=== PATIENT | female | born 1945 | race Caucasian/White ===

== ENCOUNTER 2020-06-11 13:51 | Outpatient (CLI) | payer MEDICARE, SELFPAY ==
[2020-06-11 14:30] VITALS: PULSE 95; O2SAT 87
[2020-06-11 14:33] VITALS: O2SAT 93
[2020-06-11 14:35] VITALS: O2SAT 87
[2020-06-11 14:38] VITALS: O2SAT 87
[2020-06-11 14:40] VITALS: PULSE 110; O2SAT 90
[2020-06-11 14:50] VITALS: PULSE 87; O2SAT 97
--- NOTE | 2020-06-11 15:17 | HOMEO2EVAL ---
Home Oxygen Evaluation RC: Home Oxygen (O2) Evaluation Start: 06/11/20 15:06 Freq: Status: Active Protocol: RPE Activity Type Activity Date Activity User E-Sign Co-Sign Detail Recorded Client Recorded Date Recorded By Document 06/11/20 14:30 KYLE [email or web address] 06/11/20 15:16 KYLE Document 06/11/20 14:33 KYLE [email or web address] 06/11/20 15:16 KYLE Document 06/11/20 14:35 KYLE [email or web address] 06/11/20 15:16 KYLE Document 06/11/20 14:38 KYLE [email or web address] 06/11/20 15:16 KYLE Document 06/11/20 14:40 KYLE [email or web address] 06/11/20 15:16 KYLE Document 06/11/20 14:50 KYLE [email or web address] 06/11/20 15:16 KYLE 06/11/20 06/11/20 06/11/20 14:30 14:33 14:35 Home O2 Evaluation Test Phase Resting Resting Exercise Oxygen Delivery Room Air Nasal Cannula Nasal Cannula Oxygen Flow Rate (L/min) 1 1 Pulse Oximetry (90-100 %) 87 L 93 87 L Pulse Rate (60-100 beats/min) 95 Activity Tolerance Ambulation Distance (feet) Home Oxygen Evaluation Comments Treatment Charges O2 Evaluation 06/11/20 06/11/20 06/11/20 14:38 14:40 14:50 Home O2 Evaluation Test Phase Exercise Exercise Resting Oxygen Delivery Nasal Cannula Nasal Cannula Nasal Cannula Oxygen Flow Rate (L/min) 2 3 1 Pulse Oximetry (90-100 %) 87 L 90 97 Pulse Rate (60-100 beats/min) 110 H 87 Activity Tolerance Good Ambulation Distance (feet) 250 250 Home Oxygen Evaluation Comments PT REQUIRES 1 L AT REST AND 3 L WITH ACTIVITY Treatment Charges
== END 2020-06-11 13:52 | disposition home or self-care (01) ==
PROVIDERS: PCP Internal Medicine; Visit Provider Internal Medicine
DX: J44.9 Chronic obstructive pulmonary disease, unspecified (principal)
CPT/HCPCS: 94618

== ENCOUNTER 2021-09-06 17:22 | Emergency (ER) | payer MEDICARE, SELFPAY ==
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
--- NOTE | ~2021-09-06 | XR_ITS ---
XR lumbar spine 2-3V 09/06/2021 21:03 Indication: Low back pain Procedure: 3 views lumbar spine Comparison: 04/29/2004 Findings: There is disc narrowing at L3-4, L4-5 and L5-S1. There are facet degenerative changes at th scott levels. There is mild superior endplate compression deformity of L2, likely chronic. No evidence for acute fracture or traumatic malalignment. There is bilateral symmetric degenerative changes of th e sacroiliac joints. Sacral foramen are symmetric. There is atherosclerosis of the aorta. Impression: 1: Progression of moderate-severe lumbar spondylosis. 2: Mild superior endplate compression deformity of L2, likely chronic. Reviewed, dictated and finalized at location A. ALLER Impression: 1: Progression of moderate-severe lumbar spondylosis. 2: Mild superior endplate compression deformity of L2, likely chronic.
[2021-09-06 17:27] VITALS: BP 154/103; PULSE 95; RESP 20; TEMP 36.4; O2SAT 97
[2021-09-06] MEDS: TETANUS,DIPHTHERIA,AC PERTUSSIS ADULT (0.5 ML) BOOSTRIX IM (20:29)
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
[2021-09-06 20:32] LABS: Basophils Absolute Auto 0.1 K/mm3 (0.0-0.1); Basophils Percent Auto 0.4 % (0.2-1.2); Eosinophils Percent Auto 0.1 % (0-4.4); Hematocrit 44.5 % (37.0-47.0); Hemoglobin 13.7 g/dL (12.0-15.0); Immature Granulocyte Absolute 0.14 K/mm3 (0.00-0.031); Immature Granulocyte Percent A 0.7 % (0-0.5); Lymphocytes Absolute Auto 0.71 K/mm3 (0.9-3.2); Lymphocytes Percent Auto 3.7 % (18.3-44.2); Mean Corpuscular HGB Conc 30.8 g/dl (32-36); Mean Corpuscular Hemoglobin 27.9 pg (26-34); Mean Corpuscular Volume 90.6 fl (80-100); Mean Platelet Volume 10.6 fl (7.4-10.4); Monocytes Absolute Auto 0.8 K/mm3 (0.1-0.6); Monocytes Percent Auto 4.3 % (2.6-8.5); Neutrophils Absolute Auto 17.5 K/mm3 (1.3-6.7); Neutrophils Percent Auto 90.8 % (45.5-73.1); Platelet Count Result 262 k/mm3 (150-375); Red Blood Count 4.91 M/mm3 (4.2-5.4); Red Cell Distribution Width 13.7 % (11.5-14.5); White Blood Count 19.2 K/mm3 (4.5-10.0)
[2021-09-06 20:46] LABS: Alanine Aminotransferase 14 U/L (4-35); Albumin Level 4.5 g/dL (3.5-5.1); Alkaline Phosphatase 104 U/L (38-126); Anion Gap 3 mmol/L (8-16); Aspartate Amino Transferase 29 U/L (14-36); Bilirubin,Total 0.8 mg/dL (0.2-1.3); Blood Urea Nitrogen 10 mg/dL (7-17); Calcium 9.7 mg/dL (8.4-10.2); Carbon Dioxide 33 mmol/L (22-30); Chloride 100 mmol/L (98-107); Estimated CRCL calculation 60 ml/min; Estimated Glomerular Filt Rate > 60; Glucose 128 mg/dL (65-110); Sodium 136 mmol/L (137-145)
[2021-09-06 21:35] LABS: Add Urine Microscopic? YES; Appearance Urine Clear (Clear); Bilirubin Urine Negative (Negative); Blood Urine 1+ (Negative); Color Urine Straw (Yellow); Glucose Urine UA Negative (Negative); Ketones Urine Negative (Negative); Leukocyte Esterase Ur 1+ LEU/UL (Negative); Mucus Urine Rare /lpf; Nitrate Urine Negative (Negative); Protein Urine Negative (Negative); Renal Epithelial Cells Urine Rare /hpf (None Seen); Specific Grav Ur 1.005 (1.001-1.035); Squamous Epithelial Cell Urine Occasional /hpf (Few); Urobilinogen Urine Negative mg/dL (<2.0); WBC Urine 16-20 /hpf
[2021-09-06] MEDS: ACETAMINOPHEN 500 MG TABLET 1000 MG (21:48)
[2021-09-06 22:05] VITALS: BP 151/88; PULSE 59; RESP 16; O2SAT 96
== END 2021-09-06 22:05 | disposition home or self-care (01) ==
PROVIDERS: Emergency Provider Emergency Medicine; PCP Internal Medicine
DX: S61.412A Laceration without foreign body of left hand, initial encounter (principal); S61.411A Laceration without foreign body of right hand, initial encounter; S00.12XA Contusion of left eyelid and periocular area, initial encounter; M54.9 Dorsalgia, unspecified; Z23 Encounter for immunization; V89.0XXA Person injured in unspecified motor-vehicle accident, nontraffic, initial encounter
CPT/HCPCS: 36415; 51701; 70450; 70486; 72100; 72125; 73130; 80053; 81001; 85025; 87086; 90471; 90715; 99284; A9270

== ENCOUNTER 2021-09-19 14:21 | Emergency (ER) | payer MEDICARE, SELFPAY ==
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
[2021-09-19 14:32] VITALS: BP 123/105; PULSE 53; RESP 20; TEMP 36.6; O2SAT 100
[2021-09-19 16:27] VITALS: BP 138/92; PULSE 105; RESP 22; TEMP 36.7; O2SAT 98
--- NOTE | 2021-09-19 16:28 | PC.NURSE ---
Rn switching out oxygen tube for new one at this time.
[2021-09-19 17:04] VITALS: BP 149/95; PULSE 93; RESP 18; O2SAT 95
[2021-09-19 17:28] LABS: Basophils Absolute Auto 0.1 K/mm3 (0.0-0.1); Basophils Percent Auto 0.6 % (0.2-1.2); Eosinophils Absolute Auto 0.2 K/mm3 (0-0.3); Eosinophils Percent Auto 1.1 % (0-4.4); Hematocrit 35.6 % (37.0-47.0); Hemoglobin 11.1 g/dL (12.0-15.0); Immature Granulocyte Absolute 0.28 K/mm3 (0.00-0.031); Lymphocytes Absolute Auto 1.32 K/mm3 (0.9-3.2); Lymphocytes Percent Auto 9.3 % (18.3-44.2); Mean Corpuscular HGB Conc 31.2 g/dl (32-36); Mean Corpuscular Hemoglobin 27.8 pg (26-34); Mean Corpuscular Volume 89.2 fl (80-100); Mean Platelet Volume 9.4 fl (7.4-10.4); Monocytes Percent Auto 7.1 % (2.6-8.5); Neutrophils Absolute Auto 11.3 K/mm3 (1.3-6.7); Neutrophils Percent Auto 79.9 % (45.5-73.1); Platelet Count Result 436 k/mm3 (150-375); Red Blood Count 3.99 M/mm3 (4.2-5.4); Red Cell Distribution Width 14.4 % (11.5-14.5); White Blood Count 14.2 K/mm3 (4.5-10.0)
[2021-09-19 17:38] LABS: Prothrombin Time 13.3 Seconds (11.1-14.7)
[2021-09-19 17:40] LABS: Partial Thromboplastin Time 38.8 SECONDS (22.3-36.8)
[2021-09-19 17:45] LABS: Lactic Acid Reflex 0.7 mmol/L (0.7-2.1)
[2021-09-19 17:46] LABS: Alanine Aminotransferase 9 U/L (4-35); Albumin Level 3.9 g/dL (3.5-5.1); Alkaline Phosphatase 111 U/L (38-126); Anion Gap 6 mmol/L (8-16); Aspartate Amino Transferase 22 U/L (14-36); Bilirubin,Total 1.3 mg/dL (0.2-1.3); Blood Urea Nitrogen 11 mg/dL (7-17); Calcium 9.4 mg/dL (8.4-10.2); Carbon Dioxide 34 mmol/L (22-30); Chloride 93 mmol/L (98-107); Estimated CRCL calculation 51 ml/min; Estimated Glomerular Filt Rate 48; Glucose 119 mg/dL (65-110); Potassium 4.3 mmol/L (3.4-5.0); Sodium 133 mmol/L (137-145)
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
[2021-09-19] MEDS: MORPHINE SULFATE (*CRX) 4 MG/ML INJ 2 MG IV PUSH (19:04)
[2021-09-19 19:07] LABS: Add Urine Microscopic? YES; Appearance Urine Cloudy (Clear); Bacteria Urine 2+ /hpf; Bilirubin Urine Negative (Negative); Blood Urine 1+ (Negative); Color Urine Yellow (Yellow); Glucose Urine UA Negative (Negative); Ketones Urine Negative (Negative); Leukocyte Esterase Ur 3+ LEU/UL (Negative); Mucus Urine Rare /lpf; Nitrate Urine Negative (Negative); Protein Urine Negative (Negative); Squamous Epithelial Cell Urine Few /hpf (Few); Urobilinogen Urine Negative mg/dL (<2.0); WBC Urine >75 /hpf
[2021-09-19 19:10] LABS: Specific Grav Ur 1.004 (1.001-1.035)
[2021-09-19 20:04] VITALS: BP 120/87; PULSE 79; RESP 20; O2SAT 99
--- NOTE | 2021-09-19 20:06 | PC.NURSE ---
report called to cornelio curtis at [facility]
== END 2021-09-19 20:47 | disposition short-term general hospital (02) ==
PROVIDERS: Emergency Provider Emergency Medicine; PCP Internal Medicine
DX: S32.021A Stable burst fracture of second lumbar vertebra, initial encounter for closed fracture (principal); D17.71 Benign lipomatous neoplasm of kidney; R58 Hemorrhage, not elsewhere classified; N39.0 Urinary tract infection, site not specified; D64.9 Anemia, unspecified; J44.9 Chronic obstructive pulmonary disease, unspecified; F17.200 Nicotine dependence, unspecified, uncomplicated; V89.2XXA Person injured in unspecified motor-vehicle accident, traffic, initial encounter
CPT/HCPCS: 36415; 74177; 80053; 81001; 83605; 85025; 85610; 85730; 87086; 87088; 96365; 96375; 99285; J1956; J2270; Q9967

== ENCOUNTER 2021-11-09 14:30 | Observation (INO) | payer MEDICARE, SELFPAY ==
[2021-11-09] VITALS (24 sets, daily range): BP systolic 137–165; BP diastolic 84–101; PULSE 84–114; RESP 11–23; TEMP 36.2–36.4; O2SAT 91–100; BMI 34.4
--- NOTE | ~2021-11-09 | CT_ITS ---
EXAMINATION: CT abdomen pelvis wo con DATE: 11/09/2021 15:38 INDICATION: Low back and pelvic pain post fall TECHNIQUE: Computed tomography (CT) of the abdomen and pelvis was performed without intravenous contr ast. Automated exposure control and iterative reconstruction technique were employed. The dose-length product was 1258.15 mGy-cm. COMPARISON: None FINDINGS: Mild discoid atelectasis and mild bronchial wall thickening at the bilateral lung bases. No pleural e ffusion. Heart size is normal. Small pericardial effusion. Liver, gallbladder, spleen, pancreas and l eft kidney are normal. 2.5 similar macroscopic fat attenuation adrenal adenomas on both the left and right. 3.5 cm gas and fluid containing duodenal diverticulum posterior to the head of the pancreas. A gain seen is a predominantly macroscopic fat density exophytic mass arising from the anterior midpole of the right kidney consistent with angiomyolipoma. The mass measures 9.0 x 7.1 x 8.5 cm. The previo usly seen surrounding perinephric hemorrhage has resolved. There is linear pattern of punctate high a ttenuation along the capsule at the lower pole of the left kidney which could represent dystrophic ca lcification or potentially a suture line at this been prior surgery. There is moderate scattered colo luiz diverticulosis without adjacent inflammatory change to suggest diverticulitis. No bowel obstructi on. Normal appendix. Diffuse wall thickening of the bladder likely related to decompressed state. Man paco and bilateral adnexa are unremarkable. No free intraperitoneal gas or fluid. No pathologically en larged abdominal or pelvic lymphadenopathy. Fusiform infrarenal abdominal aortic aneurysm measuring u p to 3.8 cm in maximal diameter. Subacute appearing L2 burst fracture with progression of now 40% adán tral vertebral body height loss and 5 mm retropulsion of a fragment of the posterior superior rim of the vertebral body which results in now moderate central canal stenosis at this level. Moderate lower thoracic and severe mid to lower lumbar spondylosis. IMPRESSION: 1. Interval progression of now 40% vertebral body height loss at a subacute L2 burst fracture, also w ith 5 mm retropulsion resulting in moderate central canal stenosis. 2. 9 cm right renal angiomyolipoma with interval resolution of the prior perinephric hemorrhage. 3. Mildly aneurysmal abdominal aorta measuring up to 3.8 cm in maximal diameter. 4. Small pericardial effusion. 5. Diverticulosis. Reviewed, dictated and finalized at location A. ING PROGRAM MANAGER IMPRESSION: 1. Interval progression of now 40% vertebral body height loss at a subacute L2 burst fracture, also with 5 mm retropulsion resulting in moderate central canal stenosis. 2. 9 cm right renal angiomyolipoma with interval resolution of the prior perine phric hemorrhage. 3. Mildly aneurysmal abdominal aorta measuring up to 3.8 cm in maximal diameter . 4. Small pericardial effusion. 5. Diverticulosis.
--- NOTE | ~2021-11-09 | CT_ITS ---
EXAMINATION: CT brain wo con INDICATION: Head injury COMPARISON: 09/06/2021 TECHNIQUE: Standard unenhanced head CT. The dose-length product (DLP) was 605.33 mGy-cm. The mA was a djusted according to patient size. Iterative reconstruction technique was employed. FINDINGS: There is no acute intraparenchymal hemorrhage. No evidence of mass lesion. No evidence of a cute infarction. There is moderate periventricular and subcortical hypodensity probably related to sm all vessel ischemic disease. There is moderate prominence of the sulci and ventricles related to cere bral atrophy. Intracranial calcified cerebral atherosclerosis is noted. There are no extra-axial walker ections. There is no mass effect or midline shift. The orbits and soft tissues are unremarkable. The visualized sinuses and mastoid air cells are well aerated. IMPRESSION: 1. No acute intracranial abnormality. 2. Age related findings. Reviewed, dictated and finalized at location F. AVER MACHINE
--- NOTE | ~2021-11-09 | XR_ITS ---
EXAMINATION: XR chest 1V portable EXAM DATE: 11/09/2021 14:59 INDICATION: Generalized weakness . TECHNIQUE: Portable AP frontal chest x-ray was obtained. Comparison is made to prior examination from 07/15/2017. FINDINGS: Lungs are hyperinflated. There is basilar linear atelectasis. Cardiomegaly. No pneumothorax or pleural effusion. There are mild bony degenerative changes. IMPRESSION: 1. Basilar linear atelectasis. 2. Cardiomegaly. 3. Hyperinflation. Reviewed, dictated and finalized at location A. STMENT ASSOCIATE
--- NOTE | 2021-11-09 14:34 | ECG_ITS ---
Measurements Intervals [place] Rate: 102 P: IA: 0 QRS: 28 QRSD: 141 T: 35 QT: 363 QTc: 473 Interpretive Statements SINUS RHYTHM ATRIAL PREMATURE COMPLEXES RIGHT BUNDLE BRANCH BLOCK MINIMAL Q WAVES- INFERIOR LEADS BASELINE ARTIFACT- I, II, III, AVR, AVL, AVF, V2-V3 ABNORMAL ECG Electronically Signed On 11-09-2021 17:05:58 HEAT TREAT PULLER by Dustin Spicer D.O.
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
[2021-11-09 15:42] LABS: Basophils Percent Auto 0.4 % (0.2-1.2); Eosinophils Absolute Auto 0.1 K/mm3 (0-0.3); Hematocrit 35.3 % (37.0-47.0); Hemoglobin 10.9 g/dL (12.0-15.0); Immature Granulocyte Absolute 0.05 K/mm3 (0.00-0.031); Immature Granulocyte Percent A 0.5 % (0-0.5); Lymphocytes Percent Auto 10.2 % (18.3-44.2); Mean Corpuscular HGB Conc 30.9 g/dl (32-36); Mean Corpuscular Hemoglobin 27.8 pg (26-34); Mean Corpuscular Volume 90.1 fl (80-100); Monocytes Absolute Auto 0.7 K/mm3 (0.1-0.6); Monocytes Percent Auto 6.9 % (2.6-8.5); Platelet Count Result 325 k/mm3 (150-375); Red Blood Count 3.92 M/mm3 (4.2-5.4); Red Cell Distribution Width 14.7 % (11.5-14.5); White Blood Count 9.8 K/mm3 (4.5-10.0)
[2021-11-09 15:42] LABS: Add Urine Microscopic? YES; Appearance Urine Clear (Clear); Bilirubin Urine Negative (Negative); Blood Urine Negative (Negative); Color Urine Yellow (Yellow); Glucose Urine UA Negative (Negative); Ketones Urine Negative (Negative); Leukocyte Esterase Ur Trace LEU/UL (Negative); Nitrate Urine Negative (Negative); Protein Urine Negative (Negative); RBC Urine 0-2 /hpf (0-2); Specific Grav Ur 1.011 (1.001-1.035); Squamous Epithelial Cell Urine Rare /hpf (Few); Urobilinogen Urine Negative mg/dL (<2.0)
[2021-11-09 15:55] LABS: Alanine Aminotransferase 7 U/L (4-35); Albumin Level 3.6 g/dL (3.5-5.1); Alkaline Phosphatase 108 U/L (38-126); Anion Gap 4 mmol/L (8-16); Aspartate Amino Transferase 21 U/L (14-36); Bilirubin,Total 0.5 mg/dL (0.2-1.3); Blood Urea Nitrogen 13 mg/dL (7-17); Calcium 9.4 mg/dL (8.4-10.2); Carbon Dioxide 33 mmol/L (22-30); Chloride 98 mmol/L (98-107); Estimated Glomerular Filt Rate 48; Glucose 112 mg/dL (65-110); Sodium 135 mmol/L (137-145)
[2021-11-09 15:57] LABS: NT Pro B Type Natriuretic Pept 1130 pg/mL (5-100)
[2021-11-09 16:05] LABS: Troponin I 0.165 ng/mL (0.000-0.034)
[2021-11-09] MEDS: FUROSEMIDE INJ 40 MG/4 ML VIAL IV PUSH (16:26)
[2021-11-09] MEDS: ASPIRIN 81 MG CHEWABLE TABLET 324 MG PO (16:28)
[2021-11-09] MEDS: LORazepam (*CRX) 1 MG TABLET PO (18:03)
[2021-11-09] MEDS: traMADol HCL (*CRX) 50 MG TABLET PO (18:03)
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
[2021-11-09 20:52] LABS: SARS-CoV-2 RNA PCR Negative
--- NOTE | 2021-11-09 21:39 | PC.NURSE ---
This patient, Luba Sotelo, was admitted to IMU Room 201-01. Patient/family oriented to hospital policies and general routines including ID bracelet, bed and alarms, visiting hours, pain management, procedures, bathroom and other care routines, personal items, smoking policy, room service/diet, and visiting hours. Information on how to activate the Rapid Response Team has been discussed. Patient/Family are encouraged to report perceived risks to care and to ask questions if they do not understand what they are told or what they should do.
[2021-11-09 23:20] LABS: Troponin I 0.152 ng/mL (0.000-0.034)
[2021-11-10] VITALS (17 sets, daily range): BP systolic 134–162; BP diastolic 80–99; PULSE 71–118; RESP 16–20; TEMP 36.2–36.9; O2SAT 91–99
--- NOTE | 2021-11-10 | ECHO_ITS ---
Patient Info Name: Luba Sotelo Age: 76 years : 1945 Gender: Female Ht: 66 in Wt: 213 lbs BSA: 2.16 m2 HR: 104 bpm BP: 153 / 91 mmHg Technical Quality: Fair Exam Date: 11/10/2021 11:23 AM Exam Location: [facility] Pulmonary Patient Status: Inpatient Admit Date: 11/09/2021 Staff Ordering Physician: Kash Paiz MD Supervisor Network Control Operators: Vivi Freedman RDCS Attending Provider: Roxanne Eid MD Exam Type: CA echo dop color flow w con Study Info Indications - chf Complete two-dimensional, color flow and Doppler transthoracic echocardiogram is performed. Summary 1. Complete two-dimensional, color flow and Doppler transthoracic echocardiogram is performed. 2. Suboptimal image quality; echo contrast was used. Normal LV size, mild LVH, normal LV systolic function, ejection fraction 60 65%. Diastolic dysfunction is present. Mild mitral annular calcification, no significant MR. Aortic valve is not well visualized, no hemodynamically significant stenosis by Doppler. Trivial TR, RVSP 23 mmHg. Trivial pericardial effusion, epicardial fat pad. Sinus rhythm with ectopy. Left Ventricle Left ventricular chamber dimension is normal. Left ventricular systolic function is normal, estimated at 60-65%. There is mildly increased left ventricular wall thickness. The left ventricular diastolic function is abnormal. Right Ventricle Right ventricular chamber dimension is normal. Right ventricular systolic function is normal. Left Atria Left atrial chamber dimension is normal. Right Atria Right atrial chamber dimension is normal. Aortic Valve The aortic valve is not well visualized. There is no aortic valve stenosis. Pulmonic Valve The pulmonic valve is not well visualized. Mitral Valve There is no mitral valve regurgitation. The mitral valve annulus is mildly calcified. Pericardium/Pleural The pericardium appears epicardial fat pad. There is trivial pericardial effusion. Inferior Vena Cava Dilated inferior vena cava with >50% collapse upon inspiration consistent with elevated right atrial pressure, 10 mmHg. Aorta The aortic root size at the sinus of Valsalva is normal. Left Ventricular Outflow Tract Name Value Normal LVOT 2D LVOT Diameter 2.14 cm LVOT Doppler LVOT Peak Gradient 4 mmHg LVOT Mean Gradient 2 mmHg LVOT VTI 13.94 cm LVOT VTI/AV VTI Ratio 0.63 LVOT Stroke Volume 50.18 ml LVOT CO 5.80 l/min LVOT CI 2.68 L/min/m2 Pulmonic Valve Name Value Normal RVOT Doppler RVOT Peak Gradient 2 mmHg PV Doppler PV Peak Gradient 3 mmHg
[2021-11-10] MEDS: LEVOTHYROXINE SODIUM 112 MCG TABLET PO (06:27)
--- NOTE | 2021-11-10 08:20 | PC.NURSE ---
AT 0800 Patient stated to [facility] that she had wishes to kill herself. This nurse notified of patient behavior. At 0805, this RN went to assess patient. Patient states that she want's to jump out the window , she wishes that she would just . [place] scale risk completed at this time and patient scored low risk . Dr. Colón updated and notified of patient behavior at 0820. Will continue to monitor.
[2021-11-10] MEDS: UMECLIDINIUM BROMIDE 62.5 MCG ELLIPTA 1 PUFF INHALATION (08:23)
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
[2021-11-10] MEDS: FUROSEMIDE 20 MG TABLET PO (08:37)
[2021-11-10] MEDS: LOSARTAN POTASSIUM 50 MG TABLET PO (08:37)
[2021-11-10] MEDS: ALPRAZolam (*CRX) 0.5 MG TABLET 1 MG PO ×3 (08:38→17:59)
[2021-11-10] MEDS: POTASSIUM CHLORIDE 10 MEQ TABLET.ER PO (08:38)
[2021-11-10] MEDS: IBUPROFEN 400 MG TABLET 800 MG PO (08:41)
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
[2021-11-10] MEDS: PERFLUTREN LIPID MICROSPHERES 1.5 ML VIAL DILUTED TO 10 ML TOTAL VOLUME IV PUSH (12:10)
--- NOTE | 2021-11-10 12:10 | IVDEFINITY ---
Prior to administration of IV Definity the patient was educated on the risks and benefits of the imaging enhancing agent including potential adverse side effects. The patient verbalized understanding. Allergies were verified. No exclusion criteria were identified and at least one of the following inclusion criteria were met: 1) physician request, 2) patient technically difficult to image (per the [place] [employer]ocardi[employer] guidelines of two or more segments not discernable within the apical view), or 3) questionable left ventricular function. ?
[2021-11-10] MEDS: BISACODYL 10 MG SUPPOSITORY RECTAL (14:13)
[2021-11-10] MEDS: EUCERIN CREAM 120 GM JAR 1 APPLIC TOPICAL (17:59)
[2021-11-10] MEDS: polyethylene glycoL 3350 17 GM POWD.PACK PO (17:59)
[2021-11-11] VITALS (14 sets, daily range): BP systolic 136–155; BP diastolic 72–109; PULSE 71–105; RESP 15–20; TEMP 35.9–36.4; O2SAT 94–100
[2021-11-11 05:13] LABS: Basophils Absolute Auto 0.1 K/mm3 (0.0-0.1); Basophils Percent Auto 0.6 % (0.2-1.2); Eosinophils Absolute Auto 0.4 K/mm3 (0-0.3); Eosinophils Percent Auto 4.8 % (0-4.4); Hematocrit 35.8 % (37.0-47.0); Hemoglobin 10.9 g/dL (12.0-15.0); Immature Granulocyte Absolute 0.06 K/mm3 (0.00-0.031); Immature Granulocyte Percent A 0.8 % (0-0.5); Lymphocytes Absolute Auto 1.26 K/mm3 (0.9-3.2); Lymphocytes Percent Auto 16.2 % (18.3-44.2); Mean Corpuscular HGB Conc 30.4 g/dl (32-36); Mean Corpuscular Hemoglobin 28.2 pg (26-34); Mean Corpuscular Volume 92.5 fl (80-100); Mean Platelet Volume 10.1 fl (7.4-10.4); Monocytes Absolute Auto 0.7 K/mm3 (0.1-0.6); Monocytes Percent Auto 8.4 % (2.6-8.5); Neutrophils Absolute Auto 5.4 K/mm3 (1.3-6.7); Neutrophils Percent Auto 69.2 % (45.5-73.1); Platelet Count Result 288 k/mm3 (150-375); Red Blood Count 3.87 M/mm3 (4.2-5.4); White Blood Count 7.8 K/mm3 (4.5-10.0)
[2021-11-11] MEDS: LEVOTHYROXINE SODIUM 112 MCG TABLET PO (05:22)
[2021-11-11 05:31] LABS: Alanine Aminotransferase 6 U/L (4-35); Albumin Level 3.3 g/dL (3.5-5.1); Alkaline Phosphatase 100 U/L (38-126); Anion Gap 2 mmol/L (8-16); Aspartate Amino Transferase 19 U/L (14-36); Bilirubin,Total 0.5 mg/dL (0.2-1.3); Blood Urea Nitrogen 13 mg/dL (7-17); Calcium 8.7 mg/dL (8.4-10.2); Carbon Dioxide 36 mmol/L (22-30); Chloride 99 mmol/L (98-107); Creatine Kinase 39 U/L (30-135); Estimated CRCL calculation 50 ml/min; Estimated Glomerular Filt Rate 54; Glucose 93 mg/dL (65-110); Magnesium 2.2 mg/dL (1.6-2.3); Phosphorus 3.6 mg/dL (2.5-4.5); Potassium 3.4 mmol/L (3.4-5.0); Sodium 137 mmol/L (137-145)
[2021-11-11 06:24] LABS: Folic Acid 14.1 ng/mL (2.76->20); Vitamin B12 < 159.0 pg/mL (239-931)
[2021-11-11] MEDS: UMECLIDINIUM BROMIDE 62.5 MCG ELLIPTA 1 PUFF INHALATION (07:57)
[2021-11-11] MEDS: POTASSIUM CHLORIDE 10 MEQ TABLET.ER PO (09:02)
[2021-11-11] MEDS: LOSARTAN POTASSIUM 50 MG TABLET PO (09:02)
[2021-11-11] MEDS: CYANOCOBALAMIN INJ 1,000 MCG/ML VIAL 1000 MCG IM (09:03)
[2021-11-11] MEDS: polyethylene glycoL 3350 17 GM POWD.PACK PO (09:03)
[2021-11-11] MEDS: CYANOCOBALAMIN 1,000 MCG TABLET 1000 MCG PO (09:03)
[2021-11-11] MEDS: ALPRAZolam (*CRX) 0.5 MG TABLET 1 MG PO ×3 (09:03→16:11)
[2021-11-11] MEDS: FUROSEMIDE 20 MG TABLET PO (09:03)
[2021-11-11] MEDS: EUCERIN CREAM 120 GM JAR 1 APPLIC TOPICAL ×2 (09:03→16:11)
[2021-11-11] MEDS: IBUPROFEN 400 MG TABLET 800 MG PO (09:06)
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
--- NOTE | 2021-11-11 14:30 | PCCCNOTE ---
On 11/11/21, the student, [Zuri Pham ], provided care and completed [facility] documentation on this patient. I have reviewed the student's documentation and agree with the findings.
[2021-11-11] MEDS: POTASSIUM CHLORIDE 20 MEQ TABLET PO (16:05)
[2021-11-12] VITALS (9 sets, daily range): BP systolic 146–153; BP diastolic 58–87; PULSE 87–103; RESP 20–22; TEMP 35.9; O2SAT 92–100
[2021-11-12] MEDS: IBUPROFEN 400 MG TABLET 800 MG PO ×2 (00:09→09:38)
[2021-11-12] MEDS: LEVOTHYROXINE SODIUM 112 MCG TABLET PO (06:05)
[2021-11-12] MEDS: LOSARTAN POTASSIUM 50 MG TABLET PO (09:31)
[2021-11-12] MEDS: CYANOCOBALAMIN INJ 1,000 MCG/ML VIAL 1000 MCG IM (09:31)
[2021-11-12] MEDS: SPIRONOLACTONE 25 MG TABLET PO (09:31)
[2021-11-12] MEDS: ALPRAZolam (*CRX) 0.5 MG TABLET 1 MG PO ×2 (09:31→14:23)
[2021-11-12] MEDS: CYANOCOBALAMIN 1,000 MCG TABLET 1000 MCG PO (09:31)
[2021-11-12] MEDS: FUROSEMIDE 20 MG TABLET PO (09:31)
[2021-11-12] MEDS: POTASSIUM CHLORIDE 10 MEQ TABLET.ER PO (09:32)
[2021-11-12] MEDS: EUCERIN CREAM 120 GM JAR 1 APPLIC TOPICAL (09:32)
[2021-11-12] MEDS: polyethylene glycoL 3350 17 GM POWD.PACK PO (09:32)
[2021-11-12 09:39] LABS: Anion Gap 4 mmol/L (8-16); Blood Urea Nitrogen 13 mg/dL (7-17); Calcium 8.6 mg/dL (8.4-10.2); Carbon Dioxide 32 mmol/L (22-30); Chloride 101 mmol/L (98-107); Estimated CRCL calculation 54 ml/min; Estimated Glomerular Filt Rate > 60; Glucose 95 mg/dL (65-110); Potassium 3.8 mmol/L (3.4-5.0); Sodium 137 mmol/L (137-145)
[2021-11-12] MEDS: UMECLIDINIUM BROMIDE 62.5 MCG ELLIPTA 1 PUFF INHALATION (09:49)
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
--- NOTE | 2021-11-12 14:01 | PCCCNOTE ---
On 11/12/21, the student, Sue John, provided care and completed [facility] documentation on this patient. I have reviewed the student's documentation and agree with the findings.
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
== END 2021-11-12 17:10 | disposition home or self-care (01) ==
LOC: ANHED 17:42 → ANHIMU 23:56
PROVIDERS: Emergency Medicine; Internal Medicine Cardiovascular Disease; Admitting Provider Internal Medicine; Emergency Provider Nurse Practitioner Family; PCP Internal Medicine; Visit Provider Internal Medicine
DX: J96.10 Chronic respiratory failure, unspecified whether with hypoxia or hypercapnia (principal); I48.91 Unspecified atrial fibrillation; M62.81 Muscle weakness (generalized); J44.9 Chronic obstructive pulmonary disease, unspecified; S32.029A Unspecified fracture of second lumbar vertebra, initial encounter for closed fracture; R26.81 Unsteadiness on feet; R29.6 Repeated falls; I50.9 Heart failure, unspecified; R00.0 Tachycardia, unspecified; I11.0 Hypertensive heart disease with heart failure; M54.50 Low back pain, unspecified; G89.29 Other chronic pain; R77.8 Other specified abnormalities of plasma proteins; D17.71 Benign lipomatous neoplasm of kidney; E53.8 Deficiency of other specified B group vitamins; Z87.891 Personal history of nicotine dependence; Z20.822 Contact with and (suspected) exposure to COVID-19
CPT/HCPCS: 36415; 51701; 70450; 71045; 74176; 80048; 80053; 81001; 82550; 82607; 82746; 83735; 83880; 84100; 84443; 84484; 85025; 93005; 94640; 96372; 96374; 96375; 97110; 97161; 97165; 97530; 99285; A9270; C8929; C9803; G0378; J1940; J3420; Q9957; U0003; U0005

== ENCOUNTER 2021-12-30 20:05 | Inpatient (IN) | payer MEDICARE, SELFPAY ==
--- NOTE | ~2021-12-30 | MR_ITS ---
EXAMINATION: MR lumbar spine [facility] EXAM DATE: 01/05/2022 14:25 INDICATION: L2 burst fracture. TECHNIQUE: Multi-sequential, multiplanar MR images of the lumbar spine were obtained without contrast . Sagittal T1, T2, T2 fat saturation images. Axial T2 weighted images. Correlation is made to CT [facility] spine 12/31/2021. FINDINGS: Again there is mild to burst fractures with moderate loss of this vertebral body height ant eriorly and centrally, mild to moderate loss posteriorly. There is 5-6 mm retropulsion, causing moder ate central canal stenosis. Moderate disc disease L4-5 and L5-S1. The conus medullaris terminates at the T12-L1 level and has normal signal intensity and morphology. Paraspinal soft tissue is unremarka ble. Level by level evaluation: T12-L1: Disc does not extend beyond the endplate margin. Facet arthropathy: Mild. Neural foraminal stenosis: No stenosis. Central canal stenosis: No stenosis. L1-L2: There is a moderate diffuse disc bulge/retropulsion L2 superior endplate Facet arthropathy: Moderate . Ligamentum flavum enlargement. Neural foraminal stenosis: Mild to moderate bilateral. Central canal stenosis: Moderate. L2-L3: There is a mild to moderate diffuse disc bulge. Facet arthropathy: Moderate to severe . Ligamentum flavum enlargement. Neural foraminal stenosis: Mild to moderate bilateral. Central canal stenosis: Mild to moderate. L3-L4: There is a mild diffuse disc bulge. Facet arthropathy: Moderate. Neural foraminal stenosis: Mild to moderate bilateral. Central canal stenosis: Mild. L4-L5: There is a mild to moderate diffuse disc bulge. Facet arthropathy: Mild to moderate. Neural foraminal stenosis: Mild to moderate bilateral. Central canal stenosis: Mild. L5-S1: There is a mild to moderate diffuse disc bulge. Facet arthropathy: Mild. Neural foraminal stenosis: Mild to moderate left, mild right. Central canal stenosis: No stenosis. IMPRESSION: 1. Subacute L2 burst fracture with retropulsion causing moderate central canal stenosis, stable comp ared to 12/31 but mild progression compared to 11/09. 2. Spondylosis as above. Reviewed, dictated and finalized at location A. IMPRESSION: 1. Subacute L2 burst fracture with retropulsion causing moderate central canal stenosis, stable compared to 12/31 but mild progression compared to 11/09. 2. Spondylosis as above.
--- NOTE | ~2021-12-30 | CT_ITS ---
EXAMINATION: CT cervical spine w con DATE: 12/31/2021 21:29 INDICATION: Clonus. TECHNIQUE: Computed tomography (CT) of the cervical spine was performed with 100 mL Omnipaque 350 int ravenous contrast. Automated exposure control and iterative reconstruction technique were employed. T he dose-length product was 1856.00 mGy-cm. COMPARISON: None FINDINGS: There are bilateral mastoid effusions, right worse than left. There is plaque in the proxim al internal carotid arteries with 0% stenosis on the right and 46% stenosis on the left relative to n ormal distal artery lumen diameters. Bone alignment is normal. Vertebral body heights are normal. The re is mildly decreased disc height at C4-C5. The following disc levels are specifically discussed: C2-C3: There is mild left uncovertebral joint osteoarthritis. There is severe left facet joint osteoa rthritis. There is ankylosis of right facet joint with mild hypertrophy. There is mild right neural f oraminal stenosis. There is no central canal stenosis. C3-C4: There is mild bilateral uncovertebral joint osteoarthritis. There is severe bilateral facet melvin int osteoarthritis. There is mild bilateral neural foraminal stenosis. There is mild central canal st enosis. C4-C5: There is mild right uncovertebral joint osteoarthritis. There is ankylosis of left facet joint with moderate hypertrophy. There is severe right facet joint osteoarthritis. There is ankylosis of l eft facet joint with severe hypertrophy. There is moderate left neural foraminal stenosis. There is m ild central canal stenosis. C5-C6: There is mild bilateral uncovertebral joint osteoarthritis. There is severe bilateral facet melvin int osteoarthritis. There is mild bilateral neural foraminal stenosis. There is mild central canal st enosis. C6-C7: There is no uncovertebral joint osteoarthritis. There is mild right and severe left facet join t osteoarthritis. There is mild left neural foraminal stenosis. There is mild central canal stenosis. C7-T1: There is no uncovertebral joint osteoarthritis. There is mild right and severe left facet join t osteoarthritis. There is mild left neural foraminal stenosis. There is mild central canal stenosis. IMPRESSION: 1. Moderate cervical spondylosis. Reviewed, dictated and finalized at location A.
--- NOTE | ~2021-12-30 | CT_ITS ---
EXAMINATION: CT thoracic lumbar w con DATE: 12/31/2021 21:29 INDICATION: Clonus. TECHNIQUE: Computed tomography (CT) of the thoracic and lumbar spine was performed with 100 mL Omnipa que 350 intravenous contrast. Automated exposure control and iterative reconstruction technique were employed. The dose-length product was 1856.00 mGy-cm. COMPARISON: CT abdomen and pelvis 11/09/2021 FINDINGS: CT THORACIC SPINE: There is severe emphysema. A calcified left lung nodule is consistent with old gra nulomatous disease. There is mild atelectasis bilaterally. There is an eccentric aneurysm of distal a ortic arch in the area of ligamentum arteriosum measuring 4.1 cm. There is 6 degrees dextrocurvature of lower thoracic spine. There is mild chronic anterior wedging of T4-T9 vertebral bodies. There are Schmorl's nodes at multiple levels. There is multilevel mildly decreased disc height. There is severe ly decreased disc height at T4-T5 and T5-T6 and moderately decreased disc height from T6-T7 through T 8-T9. There is multilevel facet joint osteoarthritis, severe at multiple levels. On the right, there is moderate neural foraminal stenosis at T3-T4 and T7-T8. On the left, there is moderate neural cameron inal stenosis at T10-T11. There is multilevel mild neural foraminal stenosis bilaterally. At T5-T6, t here is a calcified right central protrusion with mild central canal stenosis. At T7-T8, there is a l eft central protrusion with mild central canal stenosis. At T11-T10, there is a right central extrusi on with mild central canal stenosis. CT LUMBAR SPINE: There are masses in the adrenal glands measuring up to 2.5 cm on the left that measu red low-attenuation on the prior noncontrast CT, consistent with adenomas. 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 Bone alignment is normal. There is a burst fracture of L2 with up to 4 /5 loss of height and retropulsion of bone 6 mm into central spinal canal. There is mildly decreased disc height at L3-L4 and severely decreased disc height at L4-L5 and L5-S1. There is interbody fusion at L5-S1. The following disc levels are specifically discussed: L1-L2: The disc is bulging. There is severe bilateral facet joint osteoarthritis. There is moderate r ight and mild left neural foraminal stenosis. There is severe central canal stenosis. L2-L3: The disc is bulging. There is severe bilateral facet joint osteoarthritis. There is mild bilat eral neural foraminal stenosis. There is mild central canal stenosis. L3-L4: The disc is bulging. There is severe bilateral facet joint osteoarthritis. There is mild right and moderate left neural foraminal stenosis. There is mild central canal stenosis. L4-L5: The disc is bulging. There is severe bilateral facet joint osteoarthritis. There is mild right and moderate left neural foraminal stenosis. There is mild central canal stenosis. L5-S1: The disc is bulging. There is severe bilateral facet joint osteoarthritis. There is mild right and moderate left neural foraminal stenosis. There is mild central canal stenosis. IMPRESSION: 1. L2 burst fracture with worsening from 11/09/2021. 2. Severe thoracic and lumbar spondylosis. 3. 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 4. 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 Reviewed, dictated and finalized at location A.
--- NOTE | ~2021-12-30 | XR_ITS ---
EXAMINATION: XR barium swallow modified EXAM DATE: 01/06/2022 09:03 INDICATION: Dysphagia. TECHNIQUE: Modified barium esophagram was performed by speech pathologist with radiologist Dr. Ej Zamora present to administered fluoroscopy. Speech pathologist administered barium in varying consis tencies as per speech pathologist documentation. This was recorded on tape. There was total fluorosc opic time of 1.4 minutes. The DAP for this procedure was 1.15 Gycm2. A total of 2 images sent to TX CS from the exam. FINDINGS: Oral stage: Adequate function. Pharyngeal phase: Reduced laryngeal elevation, mild vallecular residual. Laryngeal penetration: Thin liquids. Aspiration: May have been demonstrated on thin liquids. IMPRESSION: Oral feedings recommended with limitations as per speech pathologist. Please refer to s martín pathologist findings and specific feeding recommendations. Reviewed, dictated and finalized at location A. IMPRESSION: Oral feedings recommended with limitations as per speech pathologis t. Please refer to speech pathologist findings and specific feeding recommend ations.
--- NOTE | ~2021-12-30 | US_ITS ---
EXAMINATION: US renal BI EXAM DATE: 12/31/2021 10:21 INDICATION: Acute kidney insufficiency. TECHNIQUE: Multiple grayscale and Doppler images of the kidneys were obtained (by a technologist who performed the scan) and subsequently reviewed. Correlation is made to CT dated 11/09/2021. FINDINGS: Right kidney: There is normal contour and echogenicity. It measures 11.4 x 5.3 x 5.3 centimeters. 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 There is no hydronephrosis. Left kidney: There is normal contour and echogenicity. It measures 9.7 x 5.0 x 4.4 centimeters. The re are no focal renal lesions identified. There is no hydronephrosis. Timmons balloon anchor within collapsed bladder. IMPRESSION: Large right renal mass. Reviewed, dictated and finalized at location B. IMPRESSION: Large right renal mass.
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
[2021-12-30 20:19] VITALS: BP 186/93; PULSE 104; RESP 20; TEMP 36.4; O2SAT 94
--- NOTE | 2021-12-30 22:44 | ECG_ITS ---
Measurements Intervals [place] Rate: 98 P: 63 ND: 149 QRS: 42 QRSD: 147 T: 37 QT: 389 QTc: 497 Interpretive Statements SINUS RHYTHM WITH OCCASIONAL SUPRAVENTRICULAR PREMATURE COMPLEXES RIGHT BUNDLE BRANCH BLOCK ABNORMAL ECG Electronically Signed On 12-31-2021 16:48:25 CDT by Donell Snider M.D.
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
[2021-12-30 23:14] LABS: Basophils Absolute Auto 0.1 K/mm3 (0.0-0.1); Basophils Percent Auto 0.9 % (0.2-1.2); Eosinophils Absolute Auto 0.3 K/mm3 (0-0.3); Eosinophils Percent Auto 3.4 % (0-4.4); Hematocrit 38.7 % (37.0-47.0); Hemoglobin 11.7 g/dL (12.0-15.0); Immature Granulocyte Absolute 0.03 K/mm3 (0.00-0.031); Immature Granulocyte Percent A 0.4 % (0-0.5); Lymphocytes Absolute Auto 1.42 K/mm3 (0.9-3.2); Lymphocytes Percent Auto 17.8 % (18.3-44.2); Mean Corpuscular HGB Conc 30.2 g/dl (32-36); Mean Corpuscular Hemoglobin 27.9 pg (26-34); Mean Corpuscular Volume 92.1 fl (80-100); Mean Platelet Volume 11.9 fl (7.4-10.4); Monocytes Absolute Auto 0.7 K/mm3 (0.1-0.6); Monocytes Percent Auto 8.6 % (2.6-8.5); Neutrophils Absolute Auto 5.5 K/mm3 (1.3-6.7); Neutrophils Percent Auto 68.9 % (45.5-73.1); Platelet Count Result 249 k/mm3 (150-375); Red Cell Distribution Width 15.9 % (11.5-14.5)
[2021-12-30 23:17] VITALS: BP 191/118; PULSE 94; RESP 18; O2SAT 98
[2021-12-30 23:20] VITALS: RESP 18
[2021-12-31] VITALS (13 sets, daily range): BP systolic 148–163; BP diastolic 84–133; PULSE 97–116; RESP 16–18; TEMP 35.9–36.6; O2SAT 93–99
[2021-12-31 00:37] LABS: Alanine Aminotransferase 7 U/L (4-35); Albumin Level 3.8 g/dL (3.5-5.1); Alkaline Phosphatase 84 U/L (38-126); Anion Gap 6 mmol/L (8-16); Aspartate Amino Transferase 21 U/L (14-36); Bilirubin,Total 0.8 mg/dL (0.2-1.3); Blood Urea Nitrogen 14 mg/dL (7-17); Calcium 8.9 mg/dL (8.4-10.2); Carbon Dioxide 32 mmol/L (22-30); Chloride 98 mmol/L (98-107); Estimated CRCL calculation 43 ml/min; Estimated Glomerular Filt Rate 44; Glucose 108 mg/dL (65-110); NT Pro B Type Natriuretic Pept 4080 pg/mL (5-100); Potassium 3.7 mmol/L (3.4-5.0); Sodium 136 mmol/L (137-145); Troponin I 0.016 ng/mL (0.000-0.034)
[2021-12-31] MEDS: FUROSEMIDE INJ 40 MG/4 ML VIAL IV PUSH (01:14)
[2021-12-31] MEDS: traMADol HCL (*CRX) 50 MG TABLET PO ×4 (01:15→20:06)
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
--- NOTE | 2021-12-31 02:55 | ADMGEN ---
This patient, Luba Sotelo, was admitted to 3 [facility] Surg Room 314-01. Patient/family oriented to hospital policies and general routines including ID bracelet, bed and alarms, visiting hours, pain management, procedures, bathroom and other care routines, personal items, smoking policy, room service/diet, and visiting hours. Information on how to activate the Rapid Response Team has been discussed. Patient/Family are encouraged to report perceived risks to care and to ask questions if they do not understand what they are told or what they should do.
[2021-12-31] MEDS: SODIUM CHLORIDE 0.9% IV 1,000 ML 75 ML IV CONT ×2 (05:42→20:07)
[2021-12-31 05:51] LABS: Appearance Urine Clear (Clear); Bilirubin Urine Negative (Negative); Blood Urine Trace-lysed (Negative); Color Urine Yellow (Yellow); Glucose Urine UA Negative (Negative); Ketones Urine Negative (Negative); Leukocyte Esterase Ur 1+ LEU/UL (NEGATIVE); Nitrate Urine Negative (Negative); Protein Urine Negative (Negative); Urobilinogen Urine 0.2 mg/dL (<2.0); pH Urine 7.5 (5.0-9.0)
[2021-12-31 05:55] LABS: Bacteria Urine Trace /hpf; Mucus Urine Rare /lpf; Squamous Epithelial Cell Urine Occasional /hpf (Few)
[2021-12-31 05:56] LABS: Add Urine Microscopic? YES
[2021-12-31] MEDS: LEVOTHYROXINE SODIUM 112 MCG TABLET PO (06:41)
[2021-12-31] MEDS: UMECLIDINIUM BROMIDE 62.5 MCG ELLIPTA 1 PUFF INHALATION (08:32)
[2021-12-31] MEDS: SERTRALINE HCL 50 MG TABLET PO (09:19)
[2021-12-31] MEDS: amLODIPine BESYLATE 5 MG TABLET PO (09:19)
[2021-12-31] MEDS: ALPRAZolam (*CRX) 0.5 MG TABLET 1 MG PO ×3 (09:19→20:07)
[2021-12-31] MEDS: CYANOCOBALAMIN 1,000 MCG TABLET 1000 MCG PO (09:19)
[2021-12-31] MEDS: levoFLOXacin 500 MG/D5W 100 ML 500 MG/100 ML BAG 100 MG IVPB (09:24)
--- NOTE | 2021-12-31 10:44 | PC.NURSE ---
Pt's daughter, Sonia, called wanting an update. She also wanted to inform me that pt has an appointment with a neurosurgeon, Dr. Gonzalez, Tuesday01/04/22 at [place]. Sonia stated that she spoke with Dr. Gonzalez today who stated that he/she would accept pt as a transfer ( since we can't do anything to help her anyway ) since they are planning on doing lumbar surgery on pt. She also said that pt takes 1mg Lorazepam TID for a long time now.
--- NOTE | 2021-12-31 11:37 | PC.NURSE ---
I contacted Dr. Ayers to make her aware of the information that pt's daughter gave me regarding Dr. Gonzalez and transferring pt to [place].
--- NOTE | 2021-12-31 15:34 | PCOTNOTE ---
Pt. will require ortho consult for lumbar fx. prior to being evaluated for OT/PT
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
[2021-12-31] MEDS: methylPREDNISolone SOD SUCC 125 MG VIAL IV PUSH (20:06)
[2021-12-31] MEDS: HEPARIN SODIUM 5,000 UNITS/ML VIAL 5000 UNITS SUB-Q (20:06)
[2022-01-01] VITALS (19 sets, daily range): BP systolic 140–181; BP diastolic 84–104; PULSE 95–104; RESP 16–18; TEMP 36.1–36.7; O2SAT 92–98
[2022-01-01] MEDS: LEVOTHYROXINE SODIUM 112 MCG TABLET PO (06:05)
[2022-01-01] MEDS: methylPREDNISolone SOD SUCC 125 MG VIAL IV PUSH ×3 (06:05→20:30)
[2022-01-01] MEDS: UMECLIDINIUM BROMIDE 62.5 MCG ELLIPTA 1 PUFF INHALATION (08:31)
[2022-01-01] MEDS: amLODIPine BESYLATE 5 MG TABLET PO ×2 (09:30→15:22)
[2022-01-01] MEDS: CYANOCOBALAMIN 1,000 MCG TABLET 1000 MCG PO (09:30)
[2022-01-01] MEDS: SERTRALINE HCL 50 MG TABLET PO (09:31)
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
[2022-01-01] MEDS: ALPRAZolam (*CRX) 0.5 MG TABLET 1 MG PO ×2 (09:43→20:04)
[2022-01-01] MEDS: traMADol HCL (*CRX) 50 MG TABLET PO (09:43)
[2022-01-01] MEDS: levoFLOXacin 250 MG/D5W 50 ML 250 MG/50 ML BAG 50 MG IVPB (09:47)
[2022-01-01] MEDS: HEPARIN SODIUM 5,000 UNITS/ML VIAL 5000 UNITS SUB-Q ×2 (09:47→20:05)
--- NOTE | 2022-01-01 11:16 | PCOTNOTE ---
Hold per nursing, as pt. needs further specialist consultation to ensure pt. safety in therapy participation
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
[2022-01-01] MEDS: MORPHINE SULFATE (*CRX) 2 MG/ML INJ IV PUSH ×2 (15:57→20:05)
[2022-01-01 16:05] LABS: Basophils Percent Auto 0.2 % (0.2-1.2); Hematocrit 40.6 % (37.0-47.0); Hemoglobin 12.6 g/dL (12.0-15.0); Immature Granulocyte Absolute 0.02 K/mm3 (0.00-0.031); Immature Granulocyte Percent A 0.4 % (0-0.5); Lymphocytes Absolute Auto 0.54 K/mm3 (0.9-3.2); Lymphocytes Percent Auto 11.6 % (18.3-44.2); Mean Corpuscular Volume 90.2 fl (80-100); Mean Platelet Volume 11.3 fl (7.4-10.4); Monocytes Absolute Auto 0.1 K/mm3 (0.1-0.6); Monocytes Percent Auto 2.4 % (2.6-8.5); Neutrophils Percent Auto 85.4 % (45.5-73.1); Platelet Count Result 235 k/mm3 (150-375); Red Cell Distribution Width 15.1 % (11.5-14.5); White Blood Count 4.6 K/mm3 (4.5-10.0)
[2022-01-01 16:15] LABS: Anion Gap 6 mmol/L (8-16); Blood Urea Nitrogen 17 mg/dL (7-17); Calcium 9.2 mg/dL (8.4-10.2); Carbon Dioxide 33 mmol/L (22-30); Chloride 92 mmol/L (98-107); Estimated CRCL calculation 46 ml/min; Estimated Glomerular Filt Rate 48; Glucose 167 mg/dL (65-110); Potassium 3.7 mmol/L (3.4-5.0); Sodium 131 mmol/L (137-145)
[2022-01-01] MEDS: hydrALAZINE HCL 20 MG/ML VIAL 10 MG IV PUSH ×2 (16:39→22:38)
[2022-01-02] VITALS (12 sets, daily range): BP systolic 147–163; BP diastolic 76–94; PULSE 92–114; RESP 20–22; TEMP 36.1–36.8; O2SAT 93–98
[2022-01-02] MEDS: LEVOTHYROXINE SODIUM 112 MCG TABLET PO (05:30)
[2022-01-02] MEDS: methylPREDNISolone SOD SUCC 125 MG VIAL IV PUSH ×3 (05:30→21:30)
[2022-01-02 06:21] LABS: Basophils Percent Auto 0.2 % (0.2-1.2); Hematocrit 41.7 % (37.0-47.0); Hemoglobin 12.9 g/dL (12.0-15.0); Immature Granulocyte Absolute 0.05 K/mm3 (0.00-0.031); Immature Granulocyte Percent A 0.8 % (0-0.5); Lymphocytes Percent Auto 11.4 % (18.3-44.2); Mean Corpuscular HGB Conc 30.9 g/dl (32-36); Mean Corpuscular Hemoglobin 27.7 pg (26-34); Mean Corpuscular Volume 89.5 fl (80-100); Monocytes Absolute Auto 0.2 K/mm3 (0.1-0.6); Monocytes Percent Auto 3.1 % (2.6-8.5); Neutrophils Absolute Auto 5.2 K/mm3 (1.3-6.7); Neutrophils Percent Auto 84.5 % (45.5-73.1); Platelet Count Result 265 k/mm3 (150-375); Red Blood Count 4.66 M/mm3 (4.2-5.4); Red Cell Distribution Width 15.2 % (11.5-14.5); White Blood Count 6.2 K/mm3 (4.5-10.0)
[2022-01-02 06:38] LABS: Anion Gap 5 mmol/L (8-16); Blood Urea Nitrogen 20 mg/dL (7-17); Calcium 9.3 mg/dL (8.4-10.2); Carbon Dioxide 32 mmol/L (22-30); Chloride 93 mmol/L (98-107); Estimated CRCL calculation 46 ml/min; Estimated Glomerular Filt Rate 48; Glucose 144 mg/dL (65-110); Potassium 3.8 mmol/L (3.4-5.0); Sodium 130 mmol/L (137-145)
[2022-01-02] MEDS: hydrALAZINE HCL 20 MG/ML VIAL 10 MG IV PUSH (06:43)
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
[2022-01-02] MEDS: UMECLIDINIUM BROMIDE 62.5 MCG ELLIPTA 1 PUFF INHALATION (08:22)
[2022-01-02] MEDS: traMADol HCL (*CRX) 50 MG TABLET PO ×3 (09:12→21:26)
[2022-01-02] MEDS: SERTRALINE HCL 50 MG TABLET PO (09:12)
[2022-01-02] MEDS: ALPRAZolam (*CRX) 0.5 MG TABLET 1 MG PO ×3 (09:12→21:27)
[2022-01-02] MEDS: levoFLOXacin 250 MG/D5W 50 ML 250 MG/50 ML BAG 50 MG IVPB (09:13)
[2022-01-02] MEDS: amLODIPine BESYLATE 5 MG TABLET 10 MG PO (09:13)
[2022-01-02] MEDS: CYANOCOBALAMIN 1,000 MCG TABLET 1000 MCG PO (09:13)
[2022-01-02] MEDS: TOLNAFTATE 1% POWDER 45 GM BTL 1 APPLIC TOPICAL ×2 (09:14→21:30)
[2022-01-02] MEDS: HEPARIN SODIUM 5,000 UNITS/ML VIAL 5000 UNITS SUB-Q ×2 (09:16→21:37)
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
[2022-01-02] MEDS: SODIUM CHLORIDE 1 GM TABLET PO ×2 (10:05→17:37)
--- NOTE | 2022-01-02 11:34 | PC.NURSE ---
This RN, Alyssia Recinos, charted under Norma Goldsmith from 0700 today to 1130 today by mistake.
[2022-01-02] MEDS: MORPHINE SULFATE (*CRX) 2 MG/ML INJ IV PUSH (13:12)
[2022-01-03] VITALS (11 sets, daily range): BP systolic 131–167; BP diastolic 65–91; PULSE 84–99; RESP 14–20; TEMP 36.2–36.8; O2SAT 92–99
[2022-01-03] MEDS: methylPREDNISolone SOD SUCC 125 MG VIAL IV PUSH ×3 (05:45→20:36)
[2022-01-03] MEDS: LEVOTHYROXINE SODIUM 112 MCG TABLET PO (05:45)
[2022-01-03 07:57] LABS: Anion Gap 3 mmol/L (8-16); Blood Urea Nitrogen 29 mg/dL (7-17); Calcium 9.3 mg/dL (8.4-10.2); Carbon Dioxide 35 mmol/L (22-30); Chloride 92 mmol/L (98-107); Estimated CRCL calculation 43 ml/min; Estimated Glomerular Filt Rate 44; Glucose 125 mg/dL (65-110); Sodium 130 mmol/L (137-145)
--- NOTE | 2022-01-03 09:27 | PM.IMPN ---
Progress Note: A&P Assessment and Plan (1) Generalized muscle weakness: Code(s): M62.81 - Muscle weakness (generalized) Status: Acute Assessment and Plan: Patient presented with with worsening generalized weakness. PT OT consult (2) L2 vertebral fracture: Code(s): S32.029A - Unspecified fracture of second lumbar vertebra, initial encounter for closed fracture Status: Acute Assessment and Plan: Supportive care Pain management L2 vertebral burst fracture with spinal stenosis: Supportive care Pain management Orthopedic following and recommended transfer to [facility] for neurosurgery management since they don't do spine here. The patient refused MRI of cervical, thoracic and lumbar spine requested per ortho recs because she is claustrophobic. PRN tramadol and morphine for pain. case management is working on transfer out, as at yesterday, all the information and CT imaging have been sent to [facility] and we are waiting to hear back regarding acceptance. charge nurse called [facility] transfer line at [phone], they stated that on 12/31/[address] Ayers called and cancelled the transfer request. Niesha ward has cold [facility] transfer line at , they took down the patient's information and stated that their contract negotiation specialist will call back. stephane cordon was called back by their transfer personnel stating that neurosurgery has been paged, . (3) Low back pain: Qualifiers: Back pain laterality: midline Chronicity: chronic Sciatica presence: without sciatica Qualified Code(s): M54.50 - Low back pain, unspecified; G89.29 - Other chronic pain Code(s): M54.50 - Low back pain, unspecified Status: Acute Assessment and Plan: Tylenol as needed (4) Unsteady gait: Code(s): R26.81 - Unsteadiness on feet Status: Acute Assessment and Plan: PT OT consult (5) Falls frequently: Code(s): R29.6 - Repeated falls Status: Acute Assessment and Plan: For precautions (6) Acute urinary retention: Code(s): R33.8 - Other retention of urine Status: Acute Assessment and Plan: Patient with acute urinary retention Timmons is being placed Urinalysis in progress (7) Hypertension: Code(s): I10 - Essential (primary) hypertension Status: Acute Assessment and Plan: Will hold losartan and Lasix Started on amlodipine (8) A-fib: Qualifiers: Atrial fibrillation type: persistent (not longstanding) Qualified Code(s): I48.19 - Other persistent atrial fibrillation Code(s): I48.91 - Unspecified atrial fibrillation Status: Acute Assessment and Plan: Rate controlled (9) COPD (chronic obstructive pulmonary disease): Qualifiers: COPD type: unspecified COPD Qualified Code(s): J44.9 - Chronic obstructive pulmonary disease, unspecified Code(s): J44.9 - Chronic obstructive pulmonary disease, unspecified Status: Acute Assessment and Plan: Continue Ellipta (10) Chronic respiratory failure: Code(s): J96.10 - Chronic respiratory failure, unspecified whether with hypoxia or hypercapnia Status: Acute Assessment and Plan: Continue to monitor Pulse ox spot check (11) KRIS (acute kidney injury): Code(s): N17.9 - Acute kidney failure, unspecified Status: Acute Assessment and Plan: Holding Lasix Holding losartan Gentle IV hydration Right renal mass: Has large renal mass, which was seen on imaging in b Will need Outpatient follow up Avoid nephrotoxins Recheck BMP in AM (12) Renal mass: Code(s): N28.89 - Other specified disorders of kidney and ureter Status: Acute Assessment and Plan: Follow-up with PCP as outpatient (13) Aortic aneurysm: Code(s): I71.9 - Aortic aneurysm of unspecified site, without rupture Status: Acute Assessment and Plan: Abdominal and thoracic aortic aneurysm follow-up with PC
[2022-01-03] MEDS: CYANOCOBALAMIN 1,000 MCG TABLET 1000 MCG PO (09:37)
[2022-01-03] MEDS: SERTRALINE HCL 50 MG TABLET PO (09:37)
[2022-01-03] MEDS: amLODIPine BESYLATE 5 MG TABLET 10 MG PO (09:37)
[2022-01-03] MEDS: SODIUM CHLORIDE 1 GM TABLET PO ×2 (09:37→17:52)
[2022-01-03] MEDS: TOLNAFTATE 1% POWDER 45 GM BTL 1 APPLIC TOPICAL ×2 (09:37→20:34)
[2022-01-03] MEDS: levoFLOXacin 250 MG/D5W 50 ML 250 MG/50 ML BAG 50 MG IVPB (09:38)
[2022-01-03] MEDS: HEPARIN SODIUM 5,000 UNITS/ML VIAL 5000 UNITS SUB-Q ×2 (09:41→20:34)
[2022-01-03] MEDS: traMADol HCL (*CRX) 50 MG TABLET PO ×2 (09:41→20:45)
[2022-01-03] MEDS: ALPRAZolam (*CRX) 0.5 MG TABLET 1 MG PO ×2 (09:41→20:45)
[2022-01-03] MEDS: ONDANSETRON INJ 4 MG/2 ML VIAL IV PUSH (09:42)
[2022-01-03] MEDS: UMECLIDINIUM BROMIDE 62.5 MCG ELLIPTA 1 PUFF INHALATION (10:32)
[2022-01-04] VITALS (10 sets, daily range): BP systolic 137–154; BP diastolic 74–90; PULSE 84–95; RESP 18–20; TEMP 36.3–36.7; O2SAT 94–98
[2022-01-04] MEDS: LEVOTHYROXINE SODIUM 112 MCG TABLET PO (05:23)
[2022-01-04] MEDS: methylPREDNISolone SOD SUCC 125 MG VIAL IV PUSH ×3 (05:23→21:26)
[2022-01-04] MEDS: UMECLIDINIUM BROMIDE 62.5 MCG ELLIPTA 1 PUFF INHALATION (08:23)
[2022-01-04] MEDS: traMADol HCL (*CRX) 50 MG TABLET PO ×2 (10:31→14:48)
[2022-01-04] MEDS: ALPRAZolam (*CRX) 0.5 MG TABLET 1 MG PO ×2 (10:31→14:49)
[2022-01-04] MEDS: amLODIPine BESYLATE 5 MG TABLET 10 MG PO (10:33)
[2022-01-04] MEDS: CYANOCOBALAMIN 1,000 MCG TABLET 1000 MCG PO (10:33)
[2022-01-04] MEDS: SERTRALINE HCL 50 MG TABLET PO (10:33)
[2022-01-04] MEDS: SODIUM CHLORIDE 1 GM TABLET PO ×2 (10:34→17:51)
[2022-01-04] MEDS: TOLNAFTATE 1% POWDER 45 GM BTL 1 APPLIC TOPICAL ×2 (10:34→21:26)
[2022-01-04] MEDS: HEPARIN SODIUM 5,000 UNITS/ML VIAL 5000 UNITS SUB-Q ×2 (10:36→21:26)
[2022-01-04] MEDS: levoFLOXacin 250 MG/D5W 50 ML 250 MG/50 ML BAG 50 MG IVPB (10:37)
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
[2022-01-05] VITALS (11 sets, daily range): BP systolic 148–157; BP diastolic 66–82; PULSE 82–94; RESP 18–20; TEMP 36.3–36.4; O2SAT 92–98
[2022-01-05] MEDS: LEVOTHYROXINE SODIUM 112 MCG TABLET PO (06:35)
[2022-01-05] MEDS: methylPREDNISolone SOD SUCC 125 MG VIAL IV PUSH ×3 (06:35→20:20)
[2022-01-05 06:57] LABS: Basophils Percent Auto 0.3 % (0.2-1.2); Hematocrit 44.4 % (37.0-47.0); Hemoglobin 14.1 g/dL (12.0-15.0); Immature Granulocyte Percent A 1.6 % (0-0.5); Lymphocytes Percent Auto 4.7 % (18.3-44.2); Mean Corpuscular HGB Conc 31.8 g/dl (32-36); Mean Corpuscular Hemoglobin 27.5 pg (26-34); Mean Corpuscular Volume 86.7 fl (80-100); Mean Platelet Volume 11.7 fl (7.4-10.4); Monocytes Absolute Auto 0.3 K/mm3 (0.1-0.6); Monocytes Percent Auto 4.6 % (2.6-8.5); Neutrophils Absolute Auto 5.6 K/mm3 (1.3-6.7); Neutrophils Percent Auto 88.8 % (45.5-73.1); Platelet Count Result 222 k/mm3 (150-375); Red Blood Count 5.12 M/mm3 (4.2-5.4); Red Cell Distribution Width 14.6 % (11.5-14.5); White Blood Count 6.3 K/mm3 (4.5-10.0)
[2022-01-05 07:05] LABS: Anion Gap 6 mmol/L (8-16); Blood Urea Nitrogen 42 mg/dL (7-17); Calcium 8.2 mg/dL (8.4-10.2); Carbon Dioxide 32 mmol/L (22-30); Chloride 93 mmol/L (98-107); Estimated CRCL calculation 51 ml/min; Estimated Glomerular Filt Rate 54; Glucose 124 mg/dL (65-110); Potassium 4.4 mmol/L (3.4-5.0); Sodium 131 mmol/L (137-145)
[2022-01-05] MEDS: UMECLIDINIUM BROMIDE 62.5 MCG ELLIPTA 1 PUFF INHALATION (08:24)
[2022-01-05] MEDS: SODIUM CHLORIDE 1 GM TABLET PO ×2 (08:48→17:10)
[2022-01-05] MEDS: traMADol HCL (*CRX) 50 MG TABLET PO ×3 (08:48→21:56)
[2022-01-05] MEDS: ALPRAZolam (*CRX) 0.5 MG TABLET 1 MG PO ×3 (08:48→21:56)
[2022-01-05] MEDS: TOLNAFTATE 1% POWDER 45 GM BTL 1 APPLIC TOPICAL ×2 (08:49→20:20)
[2022-01-05] MEDS: amLODIPine BESYLATE 5 MG TABLET 10 MG PO (08:49)
[2022-01-05] MEDS: CYANOCOBALAMIN 1,000 MCG TABLET 1000 MCG PO (08:49)
[2022-01-05] MEDS: SERTRALINE HCL 50 MG TABLET PO (08:49)
[2022-01-05] MEDS: HEPARIN SODIUM 5,000 UNITS/ML VIAL 5000 UNITS SUB-Q ×2 (08:49→20:19)
[2022-01-05] MEDS: polyethylene glycoL 3350 17 GM POWD.PACK PO (08:49)
[2022-01-05] MEDS: ONDANSETRON INJ 4 MG/2 ML VIAL IV PUSH (08:49)
--- NOTE | 2022-01-05 09:48 | PC.NURSE ---
Pt family inquiring about therapy for pt. Called MD Gutiérrez, no therapy bedrest only.
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
[2022-01-05] MEDS: CALCIUM CARBONATE (TUMS) 500 MG (200 MG ELEMENTAL) 400 MG PO (13:00)
[2022-01-05] MEDS: LORazepam (*CRX) 1 MG TABLET PO (13:17)
[2022-01-05] MEDS: MORPHINE SULFATE (*CRX) 2 MG/ML INJ IV PUSH (13:21)
--- NOTE | 2022-01-05 15:20 | PC.NURSE ---
MRI results faxed to [facility].
[2022-01-06] VITALS (10 sets, daily range): BP systolic 140–152; BP diastolic 82–95; PULSE 74–95; RESP 18–20; TEMP 36.1–36.8; O2SAT 94–98
[2022-01-06] MEDS: LEVOTHYROXINE SODIUM 112 MCG TABLET PO (05:21)
[2022-01-06] MEDS: methylPREDNISolone SOD SUCC 125 MG VIAL IV PUSH (05:21)
[2022-01-06] MEDS: SODIUM CHLORIDE 1 GM TABLET PO ×2 (08:11→17:22)
[2022-01-06] MEDS: amLODIPine BESYLATE 5 MG TABLET 10 MG PO (08:11)
[2022-01-06] MEDS: SERTRALINE HCL 50 MG TABLET PO (08:12)
[2022-01-06] MEDS: CYANOCOBALAMIN 1,000 MCG TABLET 1000 MCG PO (08:12)
[2022-01-06] MEDS: TOLNAFTATE 1% POWDER 45 GM BTL 1 APPLIC TOPICAL ×2 (08:14→20:08)
[2022-01-06] MEDS: HEPARIN SODIUM 5,000 UNITS/ML VIAL 5000 UNITS SUB-Q ×2 (08:14→20:03)
[2022-01-06] MEDS: traMADol HCL (*CRX) 50 MG TABLET PO ×3 (08:20→20:38)
[2022-01-06] MEDS: ALPRAZolam (*CRX) 0.5 MG TABLET 1 MG PO ×3 (08:20→20:34)
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
--- NOTE | 2022-01-06 10:04 | PCSTNOTE ---
Please refer to the Modified Barium Swallow Evaluation in the EMR.
[2022-01-06] MEDS: SODIUM CHLORIDE 0.9% IV 1,000 ML 75 ML IV CONT ×2 (10:42→23:10)
[2022-01-06] MEDS: methylPREDNISolone SOD SUCC 40 MG VIAL IV PUSH ×2 (13:22→21:05)
[2022-01-07] VITALS (10 sets, daily range): BP systolic 137–160; BP diastolic 74–84; PULSE 79–95; RESP 18; TEMP 36.2–36.3; O2SAT 96–98
[2022-01-07] MEDS: methylPREDNISolone SOD SUCC 40 MG VIAL IV PUSH ×2 (05:46→17:05)
[2022-01-07] MEDS: LEVOTHYROXINE SODIUM 112 MCG TABLET PO (05:47)
[2022-01-07] MEDS: SERTRALINE HCL 50 MG TABLET PO (09:12)
[2022-01-07] MEDS: CYANOCOBALAMIN 1,000 MCG TABLET 1000 MCG PO (09:12)
[2022-01-07] MEDS: SODIUM CHLORIDE 1 GM TABLET PO ×2 (09:12→17:05)
[2022-01-07] MEDS: amLODIPine BESYLATE 5 MG TABLET 10 MG PO (09:12)
[2022-01-07] MEDS: TOLNAFTATE 1% POWDER 45 GM BTL 1 APPLIC TOPICAL ×2 (09:17→19:58)
[2022-01-07] MEDS: traMADol HCL (*CRX) 50 MG TABLET PO ×2 (09:26→19:50)
[2022-01-07] MEDS: HEPARIN SODIUM 5,000 UNITS/ML VIAL 5000 UNITS SUB-Q ×2 (09:30→19:51)
--- NOTE | 2022-01-07 09:44 | PM.IMPN ---
Progress Note: A&P Assessment and Plan (1) Generalized muscle weakness: Code(s): M62.81 - Muscle weakness (generalized) Status: Acute Assessment and Plan: Patient presented with with worsening generalized weakness. PT OT consult (2) L2 vertebral fracture: Code(s): S32.029A - Unspecified fracture of second lumbar vertebra, initial encounter for closed fracture Status: Acute Assessment and Plan: Supportive care Pain management L2 vertebral burst fracture with spinal stenosis: Supportive care Pain management Orthopedic following and recommended transfer to [facility] for neurosurgery management since they don't do spine here. The patient refused MRI of cervical, thoracic and lumbar spine requested per ortho recs because she is claustrophobic. PRN tramadol and morphine for pain. case management is working on transfer MRI was done and sent to [facility] Pending final recommendation from neurosurgeon MRI was done. Decreased at the dose of Solu-Medrol (3) Low back pain: Qualifiers: Back pain laterality: midline Chronicity: chronic Sciatica presence: without sciatica Qualified Code(s): M54.50 - Low back pain, unspecified; G89.29 - Other chronic pain Code(s): M54.50 - Low back pain, unspecified Status: Acute Assessment and Plan: Tylenol as needed (4) Unsteady gait: Code(s): R26.81 - Unsteadiness on feet Status: Acute Assessment and Plan: PT OT consult (5) Falls frequently: Code(s): R29.6 - Repeated falls Status: Acute Assessment and Plan: For precautions (6) Acute urinary retention: Code(s): R33.8 - Other retention of urine Status: Acute Assessment and Plan: Patient with acute urinary retention Timmons is being placed Urinalysis in progress (7) Hypertension: Code(s): I10 - Essential (primary) hypertension Status: Acute Assessment and Plan: Will hold losartan and Lasix Started on amlodipine (8) A-fib: Qualifiers: Atrial fibrillation type: persistent (not longstanding) Qualified Code(s): I48.19 - Other persistent atrial fibrillation Code(s): I48.91 - Unspecified atrial fibrillation Status: Acute Assessment and Plan: Rate controlled (9) COPD (chronic obstructive pulmonary disease): Qualifiers: COPD type: unspecified COPD Qualified Code(s): J44.9 - Chronic obstructive pulmonary disease, unspecified Code(s): J44.9 - Chronic obstructive pulmonary disease, unspecified Status: Acute Assessment and Plan: Continue Ellipta (10) Chronic respiratory failure: Code(s): J96.10 - Chronic respiratory failure, unspecified whether with hypoxia or hypercapnia Status: Acute Assessment and Plan: Continue to monitor Pulse ox spot check (11) KRIS (acute kidney injury): Code(s): N17.9 - Acute kidney failure, unspecified Status: Acute Assessment and Plan: Holding Lasix Holding losartan Normal saline restarted on 01/06/2022 14 hours as patient has elevated BUN Right renal mass: Has large renal mass, which was seen on imaging in b Will need Outpatient follow up Avoid nephrotoxins Recheck BMP in AM (12) Renal mass: Code(s): N28.89 - Other specified disorders of kidney and ureter Status: Acute Assessment and Plan: Follow-up with PCP as outpatient (13) Aortic aneurysm: Code(s): I71.9 - Aortic aneurysm of unspecified site, without rupture Status: Acute Assessment and Plan: Abdominal and thoracic aortic aneurysm follow-up with PCP as outpatient (14) Urine retention: Code(s): R33.9 - Retention of urine, unspecified Status: Acute Assessment and Plan: Timmons catheter placement Additional Plan Disposition: awaiting transfer to [facility] pending acceptance. Subjective Date/time seen: 01/07/22 09:44 Interval history: 76-year-old female with COPD,
--- NOTE | 2022-01-07 11:06 | PCPTNOTE ---
Attempted physical therapy evaluation, per RN patient is on hold until cleared medically. Will continue to follow.
--- NOTE | 2022-01-07 11:26 | PM.TDS ---
Transfer Discharge Sum: Prov Provider Date of admission: 01/02/22 13:48 Primary care physician: Freddie Ritter, Admitting clinician: Akira Schwarz MD Consults: 12/31/21 Consult to Physician Routine Comment: Spoke to Dr Wiggins @ 16:57pm (,[place]) Consulting Provider: Abrahan Lemus Reason for consultation: h/o lumbar fracture Has provider been notified: Yes DS: Admitting Diagnosis Discharge Date 01/07/2022 Admitting Diagnosis Generalized weakness DS: Discharge Diagnosis Discharge Diagnosis (1) Generalized muscle weakness: Code(s): M62.81 - Muscle weakness (generalized) Status: Acute Assessment and Plan: Patient presented with with worsening generalized weakness. PT OT consult (2) L2 vertebral fracture: Code(s): S32.029A - Unspecified fracture of second lumbar vertebra, initial encounter for closed fracture Status: Acute Assessment and Plan: Supportive care Pain management L2 vertebral burst fracture with spinal stenosis: Supportive care Pain management Orthopedic following and recommended transfer to [facility] for neurosurgery management since they don't do spine here. The patient refused MRI of cervical, thoracic and lumbar spine requested per ortho recs because she is claustrophobic. PRN tramadol and morphine for pain. case management is working on transfer MRI was done and sent to [place] Patient was accepted by Neurosurgery Continue to taper steroid (3) Low back pain: Qualifiers: Back pain laterality: midline Chronicity: chronic Sciatica presence: without sciatica Qualified Code(s): M54.50 - Low back pain, unspecified; G89.29 - Other chronic pain Code(s): M54.50 - Low back pain, unspecified Status: Acute Assessment and Plan: Tylenol as needed (4) Unsteady gait: Code(s): R26.81 - Unsteadiness on feet Status: Acute Assessment and Plan: PT OT consult (5) Falls frequently: Code(s): R29.6 - Repeated falls Status: Acute Assessment and Plan: For precautions (6) Acute urinary retention: Code(s): R33.8 - Other retention of urine Status: Acute Assessment and Plan: Patient with acute urinary retention Timmons is being placed Urinalysis in progress (7) Hypertension: Code(s): I10 - Essential (primary) hypertension Status: Acute Assessment and Plan: Will hold losartan and Lasix Started on amlodipine (8) A-fib: Qualifiers: Atrial fibrillation type: persistent (not longstanding) Qualified Code(s): I48.19 - Other persistent atrial fibrillation Code(s): I48.91 - Unspecified atrial fibrillation Status: Acute Assessment and Plan: Rate controlled (9) COPD (chronic obstructive pulmonary disease): Qualifiers: COPD type: unspecified COPD Qualified Code(s): J44.9 - Chronic obstructive pulmonary disease, unspecified Code(s): J44.9 - Chronic obstructive pulmonary disease, unspecified Status: Acute Assessment and Plan: Continue Ellipta (10) Chronic respiratory failure: Code(s): J96.10 - Chronic respiratory failure, unspecified whether with hypoxia or hypercapnia Status: Acute Assessment and Plan: Continue to monitor Pulse ox spot check (11) KRIS (acute kidney injury): Code(s): N17.9 - Acute kidney failure, unspecified Status: Acute Assessment and Plan: Holding Lasix Holding losartan Normal saline restarted on 01/06/2022 14 hours as patient has elevated BUN Right renal mass: Has large renal mass, which was seen on imaging in b Will need Outpatient follow up Avoid nephrotoxins Recheck BMP in AM (12) Renal mass: Code(s): N28.89 - Other specified disorders of kidney and ureter Status: Acute Assessment and Plan: Follow-up with PCP as outpatient (13) Aortic aneurysm: Code(s): I71.9 - Aortic aneurysm of unspecified site, withou
--- NOTE | 2022-01-07 12:08 | PCRCNOTE ---
Window of time for administration has passed. See next scheduled administration.
--- NOTE | 2022-01-07 12:47 | PCOTNOTE ---
Attempted occupational therapy evaluation, per RN patient is on hold until cleared medically. Will continue to follow.
[2022-01-07] MEDS: SODIUM CHLORIDE 0.9% IV 1,000 ML 75 ML IV CONT (13:09)
[2022-01-07 13:38] LABS: EDCOVIDSCREEN Negative (Negative)
[2022-01-07] MEDS: ALPRAZolam (*CRX) 0.5 MG TABLET 1 MG PO (15:45)
== END 2022-01-07 20:05 | disposition short-term general hospital (02) | DRG 552 ==
LOC: ANHED 22:57 → ANH3MEDSUR 12-31 09:43
PROVIDERS: Internal Medicine; Admitting Provider Internal Medicine; Emergency Provider Emergency Medicine; PCP Internal Medicine; Visit Provider Internal Medicine
DX: S32.021A Stable burst fracture of second lumbar vertebra, initial encounter for closed fracture (principal); N17.9 Acute kidney failure, unspecified; I48.19 Other persistent atrial fibrillation; J96.10 Chronic respiratory failure, unspecified whether with hypoxia or hypercapnia; N39.0 Urinary tract infection, site not specified; E87.1 Hypo-osmolality and hyponatremia; V89.2XXA Person injured in unspecified motor-vehicle accident, traffic, initial encounter; Z20.822 Contact with and (suspected) exposure to COVID-19; M48.061 Spinal stenosis, lumbar region without neurogenic claudication; I11.0 Hypertensive heart disease with heart failure; I50.9 Heart failure, unspecified; I71.9 Aortic aneurysm of unspecified site, without rupture; J44.9 Chronic obstructive pulmonary disease, unspecified; R33.8 Other retention of urine; R29.6 Repeated falls; M54.50 Low back pain, unspecified; G89.29 Other chronic pain; M62.81 Muscle weakness (generalized); N28.89 Other specified disorders of kidney and ureter; Z87.891 Personal history of nicotine dependence
CPT/HCPCS: 36415; 71045; 72126; 72129; 72132; 72148; 76775; 80048; 80053; 81001; 83880; 84484; 85025; 87426; 92526; 92610; 92611; 93005; 94640; 96361; 96365; 96366; 96372; 96375; 96376; 99285; A9270; C9803; G0378; J0360; J1644; J1940; J1956; J2270; J2405; J2920; J2930; J7030; Q9967

== ENCOUNTER 2023-01-03 13:10 | Emergency (ER) | payer MEDICARE, SELFPAY ==
--- NOTE | ~2023-01-03 | US_ITS ---
EXAMINATION: US venous doppler UE RT DATE: 01/03/2023 15:45 INDICATION: Right arm swelling and erythema TECHNIQUE: Hoffman scale images with and without compression and Doppler images of the right upper extre mity veins were obtained. COMPARISON: None. FINDINGS: The right internal jugular vein, subclavian vein, axillary vein, brachial veins, basilic vein, cephal ic vein, radial vein, and ulnar vein are patent. IMPRESSION: 1. Patent right upper extremity veins. No evidence of deep venous thrombosis. Reviewed, dictated and finalized at location A.
[2023-01-03 13:21] VITALS: BP 149/83; PULSE 66; RESP 16; TEMP 36.4; O2SAT 92
[2023-01-03 13:49] VITALS: BP 143/86; PULSE 66; RESP 20; TEMP 36.5; O2SAT 99
--- NOTE | 2023-01-03 14:57 | ED.GENADULT ---
HPI - General Adult General Chief complaint: Unspecified Stated complaint: blood clot in hand? Time Seen by Provider: 01/03/23 14:01 Source: patient Mode of arrival: ambulatory Limitations: no limitations History of Present Illness HPI narrative: This is a 77-year-old female with past medical history of CHF, A-fib, COPD, DVT who presents to the ED with chief complaint of right hand redness and swelling x2 days. Patient states that she saw that the veins in the right hand were more prominent than the left and this concern for blood clot. Denies any injuries to the hand. Reports minimal pain that she describes as more of a discomfort. Denies any further site of pain or swelling. Denies shortness of breath, chest pain. 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 Related Data Home Medications Medication Instructions Recorded Confirmed alprazolam 1 mg tablet 1 mg PO TID PRN Anxiety 11/09/21 12/31/21 furosemide 40 mg tablet 40 mg PO BID 11/09/21 12/31/21 levothyroxine 112 mcg tablet 112 mcg PO DAILY 11/09/21 12/31/21 losartan 50 mg tablet 50 mg PO DAILY 11/09/21 12/31/21 umeclidinium 62.5 mcg/actuation 62.5 mcg inhalation DAILY 11/09/21 12/31/21 blister powder for inhalation (Incruse Ellipta) lorazepam 1 mg tablet 1 mg PO TID anxiety 12/31/21 12/31/21 potassium chloride 10 mEq 10 meq PO DAILY 12/31/21 12/31/21 tablet,extended release sertraline 50 mg tablet 50 mg PO DAILY 12/31/21 12/31/21 tramadol 50 mg tablet 50 mg PO Q8H PRN Pain 12/31/21 12/31/21 Allergies Allergy/AdvReac Type Severity Reaction Status Date / Time Cephalosporins Allergy Intermediate LIPS SWELL Verified 01/03/23 13:57 bacitracin Allergy Mild Unknown Verified 01/03/23 13:57 gramicidin D Allergy Mild Unknown Verified 01/03/23 13:57 neomycin Allergy Mild Unknown Verified 01/03/23 13:57 polymyxin B Allergy Mild Unknown Verified 01/03/23 13:57 cephalexin Allergy Unknown Swelling Verified 01/03/23 13:57 clemastine Allergy Unknown Unknown Verified 01/03/23 13:57 diphenhydramine Allergy Unknown Unknown Verified 01/03/23 13:57 menthol Allergy Unknown Unknown Verified 01/03/23 13:57 phenylpropanolamine Allergy Unknown Unknown Verified 01/03/23 13:57 procaine Allergy Unknown Unknown Verified 01/03/23 13:57 pseudoephedrine Allergy Unknown Unknown Verified 01/03/23 13:57 tripelennamine Allergy Unknown Unknown Verified 01/03/23 13:57 triprolidine Allergy Unknown Unknown Verified 01/03/23 13:57 LOCALANESTHETIC Allergy Unknown Unknown Uncoded 01/03/23 13:57 SYMPATHOMIMADR Allergy Unknown Unknown Uncoded 01/03/23 13:57 Review of Systems Review of Systems: CONSTITUTIONAL: Denies fever, chills, or sweats. EYES: Denies visual changes, redness, or discharge. ENT: Denies rhinorrhea, congestion, sore throat, or otalgia. CARDIOVASCULAR: Denies chest pain, palpitations, or edema. RESPIRATORY: Denies cough or dyspnea. GASTROINTESTINAL: Denies abdominal pain, nausea, vomiting, or diarrhea. GENITOURINARY: Denies dysuria or hematuria. SKIN: See HPI MUSCULOSKELETAL: See HPI NEUROLOGIC: Denies headache, numbness, dizziness, or weakness. PSYCHIATRIC: Denies anxiety or depression. PMFSH Past Medical History Medical History Chronic respiratory failure COPD (chronic obstructive pulmonary disease) Family History Family History Mother Diabetes mellitus Social History Social History Smoking packs per day: 1 Smoking cigarettes per day: 20.0 Years smoked: 50 Smoking pack-years: 50.00 Smoking status: Former smoker Second hand tobacco smoke exposure: Yes Alcohol intake: never Substance use: never Spiritual care concerns: Yes Exam Narrative: GENERAL: Well-appearing, well-nourished, and in no acute distress. HEAD: Normocephalic, atraumatic. EYES: PERRLA and EOMI. ENT: Nares clear, no rhin
== END 2023-01-03 17:21 | disposition home or self-care (01) ==
PROVIDERS: Emergency Provider Physician Assistant; PCP Internal Medicine
DX: M19.031 Primary osteoarthritis, right wrist (principal); I50.9 Heart failure, unspecified; J44.9 Chronic obstructive pulmonary disease, unspecified; I48.91 Unspecified atrial fibrillation; J96.10 Chronic respiratory failure, unspecified whether with hypoxia or hypercapnia; Z86.718 Personal history of other venous thrombosis and embolism; Z87.891 Personal history of nicotine dependence
CPT/HCPCS: 93971; 99284

== ENCOUNTER 2024-08-15 09:58 | Outpatient (CLI) | payer MEDICARE, SELFPAY ==
[2024-08-15 11:05] LABS: Alanine Aminotransferase 8 U/L (6-35); Albumin Level 4.6 g/dL (3.5-5.1); Alkaline Phosphatase 83 U/L (38-126); Anion Gap 9 mmol/L (4-12); Aspartate Amino Transferase 19 U/L (14-36); Bilirubin,Total 0.6 mg/dL (0.2-1.3); Blood Urea Nitrogen 20 mg/dL (7-17); Calcium 9.5 mg/dL (8.4-10.2); Carbon Dioxide 31 mmol/L (22-30); Chloride 96 mmol/L (98-107); Cholesterol 227 mg/dL (0-200); Estimated Glomerular Filt Rate 34; Glucose 82 mg/dL (65-110); HDL Direct 63 mg/dL; Potassium 4.8 mmol/L (3.4-5.0); Sodium 136 mmol/L (137-145); Triglycerides 145 mg/dL (<150)
[2024-08-15 11:16] LABS: LDL Cholesterol Direct 108 mg/dL
[2024-08-15 11:27] LABS: Free T4 Free Thyroxine 1.67 ng/mL (0.78-2.19)
[2024-08-15 11:34] LABS: Thyroid Stimulating Hormone 0.361 uIU/mL (0.465-4.680)
[2024-08-16 07:28] LABS: Triiodothyronine T3 Free 2.2 pg/mL (2.3-4.2)
== END 2024-08-15 09:59 | disposition home or self-care (01) ==
PROVIDERS: PCP Internal Medicine; Visit Provider Internal Medicine
DX: I10 Essential (primary) hypertension (principal)
CPT/HCPCS: 36415; 80053; 80061; 84439; 84443; 84481

== ENCOUNTER 2025-01-07 14:11 | Outpatient (CLI) | payer MEDICARE, SELFPAY ==
[2025-01-07 14:45] LABS: Basophils Percent Auto 0.6 % (0.2-1.2); Eosinophils Absolute Auto 0.2 K/mm3 (0-0.3); Eosinophils Percent Auto 2.1 % (0-4.4); Hematocrit 35.3 % (37.0-47.0); Hemoglobin 10.7 g/dL (12.0-15.0); Immature Granulocyte Absolute 0.04 K/mm3 (0.00-0.031); Immature Granulocyte Percent A 0.6 % (0-0.5); Lymphocytes Absolute Auto 1.72 K/mm3 (0.9-3.2); Lymphocytes Percent Auto 23.9 % (18.3-44.2); Mean Corpuscular HGB Conc 30.3 g/dl (32-36); Mean Corpuscular Hemoglobin 29.2 pg (26-34); Mean Corpuscular Volume 96.4 fl (80-100); Mean Platelet Volume 10.1 fl (7.4-10.4); Monocytes Absolute Auto 0.5 K/mm3 (0.1-0.6); Monocytes Percent Auto 6.7 % (2.6-8.5); Neutrophils Absolute Auto 4.8 K/mm3 (1.3-6.7); Neutrophils Percent Auto 66.1 % (45.5-73.1); Platelet Count Result 217 k/mm3 (150-375); Red Blood Count 3.66 M/mm3 (4.2-5.4); Red Cell Distribution Width 12.4 % (11.5-14.5); White Blood Count 7.2 K/mm3 (4.5-10.0)
[2025-01-07 15:05] LABS: Alanine Aminotransferase 12 U/L (6-35); Albumin Level 4.3 g/dL (3.5-5.1); Alkaline Phosphatase 97 U/L (38-126); Anion Gap 7 mmol/L (4-12); Aspartate Amino Transferase 20 U/L (14-36); Bilirubin,Total 0.5 mg/dL (0.2-1.3); Blood Urea Nitrogen 21 mg/dL (7-17); Calcium 9.4 mg/dL (8.4-10.2); Carbon Dioxide 30 mmol/L (22-30); Chloride 98 mmol/L (98-107); Cholesterol 171 mg/dL (0-200); Estimated Glomerular Filt Rate 36; Glucose 98 mg/dL (65-110); HDL Direct 64 mg/dL; Potassium 5.3 mmol/L (3.4-5.0); Sodium 135 mmol/L (137-145); Triglycerides 124 mg/dL (<150)
[2025-01-07 15:16] LABS: LDL Cholesterol Direct 61 mg/dL
[2025-01-07 15:36] LABS: Thyroid Stimulating Hormone 0.047 uIU/mL (0.465-4.680)
[2025-01-07 15:37] LABS: Free T3 2.54 pg/mL (2.45-5.93); Free T4 Free Thyroxine 1.79 ng/dL (0.78-2.19)
--- OUTSIDE RECORDS SUMMARY | 2025-01-07 16:07 | XMS_ITS | CONTINUITY OF CARE DOCUMENT ---
Author Name ninapalmaronni Address Unknown Organization [facility] Address [address] [place] [address] Phone [phone] Care Team Providers Care Machine Precision Etcher Name Role Phone Sharon RANKIN, [place] Unavailable KEYON RUIZ MD Unavailable KEYNO RUIZ MD Unavailable [phone] INSURANCE PROVIDERS Payer name Policy type / Coverage type [place] red libertarian ID AARP MEDICARE ADVANTAGE HMO-POS HMO [id number]
--- OUTSIDE RECORDS SUMMARY | 2025-01-07 16:07 | XMS_ITS | Clinical Summary ---
Author Organization [facility] Address [address] [place] [address] Care Team Providers Care Pmp Project Manager Name Role Phone Unavailable Primary Care Provider Unavailabl e Source Comments [facility],non-owned Affiliates and Associated Physician Practices is amultiple site organization consisting of ambulatory clinics and hospital sitesin [place], [place], [place] and [place]. This disclosure is being madepursuant to the Care Everywhere program and may not contain all information available regarding this patient. Last updated 18.[facility] Allergies No known active allergies Medications * Be aware that medications may not be up to date on this document. Alwaysverify current medications with the patient. aspirin (ASPIRIN) 81 MG chew tablet Take 1 (one) tablet by mouth once daily 100 tablet 11/26/2021 Active Active Problems Problem Noted Date Diagnosed Date Weakness 11/26/2021 Social History Tobacco Use Types Packs/Day Years Used Date Smoking Tobacco: Never Assessed Comments Unknown Sex and Gender Information Value Date Recorded Sex Assigned at Not on file Legal Sex Female 5:06 PM MANAGER OF DIGITAL Gender Identity Not on file Sexual Orientation Not on file Last Filed Vital Signs Vital Sign Reading Time Taken Comments Blood Pressure 145/86 11/26/2021 12:04 AM MANAGER OF DIGITAL Pulse 77 11/26/2021 9:01 AM MANAGER OF DIGITAL Temperature 36.3 C (97.3 F) 11/25/2021 5:22 PM MANAGER OF DIGITAL Respiratory Rate 9 11/26/2021 9:01 AM MANAGER OF DIGITAL Oxygen Saturation 100% 11/26/2021 9:01 AM MANAGER OF DIGITAL Inhaled Oxygen Concentration - - Weight 94.3 kg (208 lb) 11/25/2021 5:07 PM MANAGER OF DIGITAL Height - - Body Mass Index - - Plan of Treatment Health Maintenance Due Date Last Done Comments BONE DENSITY TESTING 1945 HEPATITIS C SCREENING 03/07/1964 DTAP/TDAP/TD VACCINES (1 - Tdap) 1965 PNEUMOCOCCAL VACCINE 50+ (1 of 1 - PCV) 1996 ZOSTER VACCINE (1 of 2) 1996 Respiratory Syncytial Virus (RSV) Vaccine Pt: or over 60 yrs (1 - 1-dose 75+ series) 2021 COVID-19 VACCINE (1 - 2023-2 5 season) 2024 DEPRESSION SCREENING 09/19/2024 INFLUENZA VACCINE (Season Ended) 2025 HEPATITIS B VACCINE Aged Out No longe r eligible based on patient's age to complete this topic HIB VACCINE Aged Out No longer eligi ble based on patient's age to complete this topic HPV VACCINE Aged Out No longer eligi ble based on patient's age to complete this topic MENINGOCOCCAL (Group B) VACC INE SHARED DECISION-MAKING Aged Out No longer eligibl e based on patient's age to complete this topic MENINGOCOCCAL GROUPS A/C/Y/W VACCINE Aged Out No longer eligible b ased on patient's age to complete this topic [place] [address] [facility] [place] [address] [place] [address] [facility] [place] [address]
--- OUTSIDE RECORDS SUMMARY | 2025-01-07 16:07 | XMS_ITS | Data Portability ---
Author Organization [facility] [place] Address [address] [place] [address] Care Team Providers Care Terminal Operator Name Role Phone KEYON RITTER Primary Care Provider [phone] Assessment Encounter Date Assessment Date Assessment LastModified by Organization Details LastModified Time 01/19/2024 01/19/2024 We will continue with her medications they have been reviewed get her old records she is unsure of immunizations and screenings diagnosis and assessment and plan have been discussed follow-up with me in 4 months [email or web address] Not available 01/19/2024 22:55:55 06/11/2024 06/11/2024 increase lorazepam to 1 mg t.i.d. p.r.n. blood work continue oxygen stay up-to-date on immunizations she declines any cancer screenings follow up 3 months [email or web address] Not available 06/11/2024 22:35:05 06/25/2024 06/25/2024 assessments have been discussed flu shot will be administered healthy lifestyle care instructions. All questions answered immunizations and screenings ordered were appropriate and patient agreeable [email or web address] Not available 06/30/2024 14:59:55 09/10/2024 09/10/2024 continue with medications clinically she has been stable her last blood work reviewed she did start the atorvastatin she is trying to drink a little bit more water healthy lifestyle care instructions she refuses any immunizations and she refuses any screenings. Follow up with me in 4 months [email or web address] Not available 09/22/2024 21:13:47 Plan of Treatment Reminders Order Date Submit Date Provider Last Modified By Organization Details Last Modified Time Details Appointments ANY 2024 01:15P Imani Ritter MD Not available Not available Not available ANY 15 2024 01:15P Imani Ritter MD Not available Not available Not available Lab unlisted lab - T4, free 2023 024 [email or web address] [facility], [address], [place], [address], 09/04/2024 15:25:05 T3, free, serum or plasma 2023 024 BELINDA [facility], [address], [place], [address], 08/17/2024 07:37:33 TSH, ultra-sen sitive, serum 2023 024 BELINDA [facility], [address], [place], [address], 09/10/2024 15:40:41 lipid panel, serum 2023 024 BELINDA [facility], [address], [place], [address], 09/10/2024 15:40:41 CMP, serum or plasma 2023 024 BELINDA [facility], [address], [place], [address], 08/15/2024 15:40:37 CBC w/ auto diff 2023 024 BELINDA [facility], [address], [place], [address], 06/14/2024 11:08:23 HbA1c (hemoglob in A1c), blood 2023 024 [email or web address] [facility], [address], [place], [address], 07/17/2024 17:20:37 CBC w/ auto diff 2023 024 BELINDA [facility], [address], [place], [address], 01/28/2024 08:21:40 lipid panel, serum 2023 024 [facility], [address], [place], [address], 01/28/2024 08:21:38 CMP, serum or plasma 2023 024 [facility], [address], [place], [address], 01/28/2024 08:21:39 T3, free, serum or plasma 2023 [facility], [address], [place], [address], 01/28/2024 08:21:40 TSH, ultra-sen sitive, serum 2023 024 [facility], [address], [place], [address], 01/28/2024 08:21:39 T4, free, serum 2023 024 [facility], [address], [place], [address], 01/28/2024 08:21:41 Referral None recorded. Procedures None recorded. Surgeries None recorded. Imaging None recorded. Medication Orders None recorded. Patient TargetsNo targets recorded. Patient Instructions Encounter Date Encounter Id Patient Instructions Last Modified By Organization Details Last Modified Time 06/25/2024 [id number] A healthy lifestyle: care instructions [email or web address] Not available 06/25/2024 15:24:29 preventing falls : care instructions [email or web address] Not available 06/25/2024 15:24:29 Medicare [facility] Preventive Checklist [email or web address] Not available 06/25/2024 15:24:29 09/10/2024 [id number] A healthy lifestyle: care instructions [email or web address] Not available 09/10/2024 17:46:32 Reason for Referral None Reported. Results Created Date Observation Date Name Description Value Unit Range Abnormal Flag Note LastModifiedBy Organization Detail LastModifiedTime 01/27/20 24 01/28/2024 LIPID PANEL cholesterol, total 197 mg/dL 100-19 9 Not Available [facility] ([facility]) [address] [facility], [place], [address], 01/28/2024 08:21:38 01/27/20 24 01/28/2024 LIPID PANEL triglyceride s 150 mg/dL 0-149 above high normal Not Available [facility] ([facility]) [address] [place], [address], 01/28/2024 08:21:38 01/27/20 24 01/28/2024 LIPID PANEL HDL cholesterol 62 mg/dL >39 Not Available [facility] ([facility]) [address] [place], [address], 01/28/2024 08:21:38 01/27/20 24 01/28/2024 LIPID PANEL VLDL cholesterol enrico 26 mg/dL 5-40 Not Available [facility] ([facility]) [address] [place], [address], 01/28/2024 08:21:38 01/27/20 24 01/28/2024 LIPID PANEL LDL chol calc ([facility]) 109 mg/dL 0-99 above high normal Not Available [facility] ([facility]) [address] [place], [address], 01/28/2024 08:21:38 01/27/20 24 01/28/2024 COMP. METAB OLIC PANEL (14) glucose 86 mg/dL 70-99 Not Available [facility] ([facility]) [address] [place], [address], 01/28/2024 08:21:38 01/27/20 24 01/28/2024 COMP. METAB OLIC PANEL (14) BUN 25 mg/dL 8-27 Not Available [facility] ([facility]) [address] [place], [address], 01/28/2024 08:21:38 01/27/20 24 01/28/2024 COMP. METAB OLIC PANEL (14) creatinine 1.44 mg/dL 0.57-1 .00 above high normal Not Available [facility] ([facility]) [address] [place], [address], 01/28/2024 08:21:38 01/27/20 24 01/28/2024 COMP. METAB OLIC PANEL (14) eGFR 37 mL/mi n/1.7 3 >59 below low normal Not Available [facility] ([facility]) [address] [place], [address], 01/28/2024 08:21:38 01/27/20 24 01/28/2024 COMP. METAB OLIC PANEL (14) BUN/creatini ne ratio 17 12-28 Not Available [facility] ([facility]) [address] [place], [address], 01/28/2024 08:21:38 01/27/20 24 01/28/2024 COMP. METAB OLIC PANEL (14) sodium 140 mmol/ L 134-14 4 Not Available [facility] ([facility]) [address] [place], [address], 01/28/2024 08:21:38 01/27/20 24 01/28/2024 COMP. METAB OLIC PANEL (14) potassium 5.5 mmol/ L 3.5-5. 2 above high normal Not Available [facility] ([facility]) [address] [facility] [place], [address], 01/28/2024 08:21:38 01/27/20 24 01/28/2024 COMP. METAB OLIC PANEL (14) chloride 100 mmol/ L 96-106 Not Available [facility] ([place] [facility]) [address] [place], [address], 01/28/2024 08:21:38 01/27/20 24 01/28/2024 COMP. METAB OLIC PANEL (14) carbon dioxide, total 26 mmol/ L 20- Not Available [facility] ([facility]) [address], [place], [address], 01/28/2024 08:21:38 01/27/20 24 01/28/2024 COMP. METAB OLIC PANEL (14) calcium 9.5 mg/dL 8.7-10 .3 Not Available [facility] ([facility]) [address] [place], [address], 01/28/2024 08:21:38 01/27/20 24 01/28/2024 COMP. METAB OLIC PANEL (14) protein, total 6.6 g/dL 6.0-8. 5 Not Available [facility] ([facility]) [address] [facility] [place], [address], 01/28/2024 08:21:38 01/27/20 24 01/28/2024 COMP. METAB OLIC PANEL (14) albumin 4.3 g/dL 3.8-4. 8 Not Available [facility] ([facility]) [address], [place], [address], 01/28/2024 08:21:38 01/27/20 24 01/28/2024 COMP. METAB OLIC PANEL (14) globulin, total 2.3 g/dL 1.5-4. 5 Not Available [facility] ([facility]) [address] [place], [address], 01/28/2024 08:21:38 01/27/20 24 01/28/2024 COMP. METAB OLIC PANEL (14) A/G ratio 1.9 1.2-2. 2 Not Available [facility] ([facility]) [address] [place], [address], 01/28/2024 08:21:38 01/27/20 24 01/28/2024 COMP. METAB OLIC PANEL (14) bilirubin, total 0.4 mg/dL 0.0-1. 2 Not Available [facility] ([facility]) [address], [place], [address], 01/28/2024 08:21:38 01/27/20 24 01/28/2024 COMP. METAB OLIC PANEL (14) alkaline phosphatase 103 IU/L 44-121 Not Available [facility] ([facility]) [address], [place], [address], 01/28/2024 08:21:38 01/27/20 24 01/28/2024 COMP. METAB OLIC PANEL (14) AST (SGOT) 12 IU/L 0-40 Not Available [facility] ([facility]) [address] [facility], [place], [address], 01/28/2024 08:21:38 01/27/20 24 01/28/2024 COMP. METAB OLIC PANEL (14) ALT (SGPT) 6 IU/L 0-32 Not Available [facility] ([facility]) [address], [place], [address], 01/28/2024 08:21:38 01/27/20 24 01/28/2024 TSH TSH 1.390 uIU/m L 0.450- 4.500 Not Available [facility] ([facility]) [address], [place], [address], 01/28/2024 08:21:39 01/27/20 24 01/28/2024 CBC WITH DIFFE RENTI AL/PL ATELE T WBC 7.7 x10e3 /uL 3.4-10 .8 Not Available [facility] ([facility]) [address] [facility], [place], [address], 01/28/2024 08:21:40 01/27/20 24 01/28/2024 CBC WITH DIFFE RENTI AL/PL ATELE T RBC 4.05 x10e6 /uL 3.77-5 .28 Not Available [facility] ([facility]) [address], [place], [address], 01/28/2024 08:21:40 01/27/20 24 01/28/2024 CBC WITH DIFFE RENTI AL/PL ATELE T hemoglobin 11.5 g/dL 11.1-1 5.9 Not Available [facility] ([facility]) [address], [place], [address], 01/28/2024 08:21:40 01/27/2001/28/2024 CBC WITH DIFFE RENTI AL/PL ATELE T hematocrit 36.8 % 34.0-4 6.6 Not Available [facility] ([facility]) [address] [place], [address], 01/28/2024 08:21:40 01/27/20 24 01/28/2024 CBC WITH DIFFE RENTI AL/PL ATELE T MCV 91 fL 79-97 Not Available [facility] ([facility]) [address] [place], [address], 01/28/2024 08:21:40 01/27/20 24 01/28/2024 CBC WITH DIFFE RENTI AL/PL ATELE T MCH 28.4 pg 26.6-3 3.0 Not Available [facility] ([facility]) [address] [place], [address], 01/28/2024 08:21:40 01/27/2001/28/2024 CBC WITH DIFFE RENTI AL/PL ATELE T MCHC 31.3 g/dL 31.5-3 5.7 below low normal Not Available [facility] ([facility]) [address] [place], [address], 01/28/2024 08:21:40 01/27/20 24 01/28/2024 CBC WITH DIFFE RENTI AL/PL ATELE T RDW 12.8 % 11.7-1 5.4 Not Available [facility] ([facility]) [address], [place], [address], 01/28/2024 08:21:40 01/27/20 24 01/28/2024 CBC WITH DIFFE RENTI AL/PL ATELE T platelets 229 x10e3 /uL 150-45 0 Not Available [facility] ([facility]) [address], [place], [address], 01/28/2024 08:21:40 01/27/20 24 01/28/2024 CBC WITH DIFFE RENTI AL/PL ATELE T neutrophils 70 % notest ab. Not Available [facility] ([facility]) [address], [place], [address], 01/28/2024 08:21:40 01/27/20 24 01/28/2024 CBC WITH DIFFE RENTI AL/PL ATELE T lymphs 20 % notest ab. Not Available [facility] ([facility]) [address], [place], [address], 01/28/2024 08:21:40 01/27/20 24 01/28/2024 CBC WITH DIFFE RENTI AL/PL ATELE T monocytes 6 % notest ab. Not Available [facility] ([facility]) [address], [place], [address], 01/28/2024 08:21:40 01/27/20 24 01/28/2024 CBC WITH DIFFE RENTI AL/PL ATELE T eos 2 % notest ab. Not Available [facility] ([facility]) [address], [place], [address], 01/28/2024 08:21:40 01/27/20 24 01/28/2024 CBC WITH DIFFE RENTI AL/PL ATELE T basos 1 % notest ab. Not Available [facility] ([facility]) [address], [place], [address], 01/28/2024 08:21:40 01/27/20 24 01/28/2024 CBC WITH DIFFE RENTI AL/PL ATELE T neutrophils (absolute) 5.4 x10e3 /uL 1.4-7. 0 Not Available [facility] ([facility]) [address], [place], [address], 01/28/2024 08:21:40 01/27/20 24 01/28/2024 CBC WITH DIFFE RENTI AL/PL ATELE T lymphs (absolute) 1.6 x10e3 /uL 0.7-3. 1 Not Available [facility] ([facility]) [address], [place], [address], 01/28/2024 08:21:40 01/27/20 24 01/28/2024 CBC WITH DIFFE RENTI AL/PL ATELE T monocytes(ab solute) 0.5 x10e3 /uL 0.1-0. 9 Not Available [facility] ([facility]) [address], [place], [address], 01/28/2024 08:21:40 01/27/20 24 01/28/2024 CBC WITH DIFFE RENTI AL/PL ATELE T eos (absolute) 0.2 x10e3 /uL 0.0-0. 4 Not Available [facility] ([facility]) [address] [place], [address], 01/28/2024 08:21:40 01/27/20 24 01/28/2024 CBC WITH DIFFE RENTI AL/PL ATELE T baso (absolute) 0.1 x10e3 /uL 0.0-0. 2 Not Available [facility] ([facility]) [address], [place], [address], 01/28/2024 08:21:40 01/27/20 24 01/28/2024 CBC WITH DIFFE RENTI AL/PL ATELE T immature granulocytes 1 % notest ab. Not Available [facility] ([facility]) [address] [place], [address], 01/28/2024 08:21:40 01/27/20 24 01/28/2024 CBC WITH DIFFE RENTI AL/PL ATELE T immature grans (abs) 0.0 x10e3 /uL 0.0-0. 1 Not Available [facility] ([facility]) [address] [facility], [place], [address], 01/28/2024 08:21:40 01/27/2001/28/2024 TRIIO DOTHY ANGELO E (T3), FREE triiodothyro nine (T3), free 1.9 pg/mL 2.0-4. 4 below low normal Not Available [facility] ([facility]) [address] [place], [address], 01/28/2024 08:21:40 01/27/20 24 01/28/2024 T4,FR EE(DI RECT) T4,free(dire ct) 1.78 NG/dL 0.82-1 .77 above high normal Not Available [facility] ([facility]) [address] [place], [address], 01/28/2024 08:21:41 Result Notes None recorded. Problems Name Problem SNOMED Code Status Onset Date Resolution Date Notes Provider Name and Address Organization Details Recorded Time Anxiety 97009863 Active 2023 YEIMI Riggs, [place] - [facility] 11:52:26 Chronic obstructive pulmonary disease 93642591 Active 2023 Benjamin Lan [place], [place] [facility] 11:52:26 Hypothyroid ism 98946693 Active 2023 Benjamin Lan [place], [place] [facility] 4 11:52:27 Essential hypertensio n 92535995 Active 2023 YEIMI [place], [place] [facility] 4 11:52:28 Chronic hypoxemic respiratory failure 073099282 Active 2023 Keyon Ritter MD Attn: Anthony segundo,[address] [facility], [place], [address], [facility] - [facility] 4 22:34:27 Mammogram declined 261490254 Active 2023 Keyon Ritter MD Attn: Anthony segundo,[address] [facility], [place], [address], [facility] - [facility] 4 22:35:24 Colonoscopy declined 7270368398741 00 Active 2023 Keyon Ritter MD Attn: Anthony segundo,[address] [facility], [place], [address], [facility] - [facility] 4 22:35:25 Problem Notes None recorded. Procedures Surgical History Date Name Laterality Status Provider Name and Address Organization Details Recorded Time Back Surgery completed Rosanna Gimenez MA [facility] 01/19/2024 11:24:22 ligation of bilateral fallopian tubes completed Rosanna Gimenez MA [facility] 01/19/2024 11:24:42 Imaging Results None recorded. Procedure Notes None recorded. Medical Equipment None Reported. Allergies No known drug allergies Medications Name Sig Start Date Stop Date Status Note LastModified by Organization Details LastModified Time losartan 50 mg tablet TAKE 1 TABLET BY MOUTH EVERY DAY 2024 active Not Available Not Available Not Avai lable atorvasta tin 10 mg tablet TAKE 1 TABLET BY MOUTH EVERY DAY 2024 active Not Available Not Available Not Avai lable alprazola m 1 mg tablet TAKE 1 TABLET BY MOUTH THREE TIMES A DAY active Not Available Not Available No t Available spironola ctone 25 mg tablet TAKE 1 TABLET BY MOUTH EVERY DAY IN THE MORNING 2024 active Not Available Not Available Not Avai lable alprazola m 0.5 mg tablet TAKE 1 TABLET BY MOUTH THREE TIMES A DAY NEEDED 06/12 completed changed to 1mg by Dr Ritter at visit 06/11/24 Not Available Not Available Not Available prednisol one acetate 1 % eye drops,randy pension INSTILL ONE DROP INTO BOTH EYES THREE TIMES A DAY FOR 3 WEEKS, THEN DISCONTI NUE 01/07 completed Not Available Not Available Not Available levothyro xine 125 mcg tablet TAKE 1 TABLET BY MOUTH EVERY DAY BEFORE BREAKFAS T active Not Available Not Available No t Available Incruse Ellipta 62.5 mcg/actua tion powder for inhalatio n INHALE ONE PUFF BY MOUTH DAILY active Not Available Not Available No t Available Vitals Date Recorded Body weight Body mass index (BMI) Body height Heart rate Oxygen saturation Oxygen saturation in Arterial blood by Pulse oximetry Inhaled oxygen flow rate Systolic blood pressure Diastolic blood pressure Provider Name and Address Organization Details Last Updated DateTime 4 91893.3 3 g 32.1 kg/m2 165.1 cm 60 /min 93 % 93 % 3 L/min 140 mm[Hg] 90 mm[Hg] Rosanna Gimenez [facility] 4 11:29:17 Date Recorded Body height Body mass index (BMI) Body weight Heart rate Oxygen saturation Oxygen saturation in Arterial blood by Pulse oximetry Inhaled oxygen flow rate Systolic blood pressure Diastolic blood pressure Provider Name and Address Organization Details Last Updated DateTime 4 165.1 cm 32.2 kg/m2 63393.1 2 g 62 /min 93 % 93 % 2 L/min 132 mm[Hg] 70 mm[Hg] Mona Euceda [facility] 4 14:54:32 Date Recorded Body height Body mass index (BMI) Body weight Heart rate Oxygen saturation Oxygen saturation in Arterial blood by Pulse oximetry Inhaled oxygen flow rate Systolic blood pressure Diastolic blood pressure Provider Name and Address Organization Details Last Updated DateTime 4 165.1 cm 32.6 kg/m2 42230.2 5 g 96 /min 85 % 85 % 2 L/min 120 mm[Hg] 70 mm[Hg] Inez Rothman [facility] 4 14:39:57 Date Recorded Pain severity - 0-10 verbal numeric rating [Score] - Reported Provider Name and Address Organization Details Last Updated DateTime 06/25/2024 0 Olamide Araiza [facility] 06/25/2024 14:43:14 Date Recorded Body height Body mass index (BMI) Body weight Heart rate Oxygen saturation Oxygen saturation in Arterial blood by Pulse oximetry Inhaled oxygen flow rate Systolic blood pressure Diastolic blood pressure Provider Name and Address Organization Details Last Updated DateTime 4 165.1 cm 32.1 kg/m2 33840.6 1 g 102 /min 95 % 95 % 4 L/min 126 mm[Hg] 72 mm[Hg] Inez [place] [facility] 4 14:36:48 Date Recorded Body height Body mass index (BMI) Body weight Heart rate Oxygen saturation Oxygen saturation in Arterial blood by Pulse oximetry Inhaled oxygen flow rate Systolic blood pressure Diastolic blood pressure Provider Name and Address Organization Details Last Updated DateTime 5 165.1 cm 30.8 kg/m2 71056.6 7 g 99 /min 85 % 85 % 2 L/min 132 mm[Hg] 78 mm[Hg] Inez Rothman [facility] 5 14:22:33 Social History Question Answer Notes LastModified by Organizat ion Details LastModified Time Tobacco Smoking Status Former Smoker quit 15 years ago [facility] 06/25/2024 14:46:18 Do You Have An Advance Directive? No Information not available 01/19/2024 What Is Your Level Of Alcohol Consumption? None Information not available 06/25/2024 Are You Blind Or Do You Have Difficulty Seeing? Yes Cataracts Information not available 06/25/2024 What Is Your Level Of Caffeine Consumption? Moderate 1 Cup Coffee A Day Information not available 01/19/2024 In The 14 Days Before Symptom Onset, Have You Had Close Contact With A Laboratory-confir med COVID-19 While That Case Was Ill? No Information not available 06/11/2024 In The 14 Days Before Symptom Onset, Have You Had Close Contact With A Person Who Is Under Investigation For COVID-19 While That Person Was Ill? No Information not available 06/11/2024 Have You Been To An Area Known To Be High Risk For COVID-19? No Information not available 06/11/2024 Are You Currently Employed? No Information not available 01/19/2024 Are You Deaf Or Do You Have Serious Difficulty Hearing? Yes Information not available 06/25/2024 What Type Of Diet Are You Following? REGULAR Information not available 01/19/2024 Are There Any Guns Present In Your Home? No Information not available 06/11/2024 In The Past 7 Days, How Many Days Did You Exercise? 0 Information not available 06/25/2024 In The Past 7 Days, How Much Pain Have You [place]? None Information not available 06/25/2024 In General, Would You Say You Health Is: Fair Information not available 06/25/2024 How Would You Describe The Condition Of Your Mouth And Teeth- Including False Teeth Or Dentures? Fair Information not available 06/25/2024 Each Night, How Many Hours Of Sleep Do You Get? 5 Information no t available 06/25/2024 Has Anyone Ever Told You That You Snore? No Information not available 06/25/2024 In The Past 7 Days, How Often Have You [place] Sleepy In The Daytime? Usually Information not available 06/25/2024 # Alcohol Drinks Per Week 0 Information not available 06/25/2024 What Was The Date Of Your Most Recent Tobacco Screening? 01/07/2025 [email or web address] Information not available 01/07/2025 What Is Your Relationship Status? Information not available 01/19/2024 Do You Use Your Seat Belt Or Car Seat Routinely? Yes Information not available 01/19/2024 Do You Have Smoke And Carbon Monoxide Detectors In Your Home? Yes Information not available 01/19/2024 How Much Tobacco Do You Smoke? 2 PPD Information not available 01/19/2024 Do You Feel Stressed (tense, Restless, Nervous, Or Anxious, Or Unable To Sleep At Night)? [id number] Information not available 06/25/2024 Do You Use Any Illicit Or Recreational Drugs? No Information not available 01/19/2024 Do You Use Sunscreen Routinely? Yes Information not available 01/19/2024 Has Tobacco Cessation Counseling Been Provided? No Information not available 01/19/2024 How Many Years Have You Smoked Tobacco? 40 Information not available 01/19/2024 Do You Or Have You Ever Used Any Other Forms Of Tobacco Or Nicotine? No Information not available 01/19/2024 Sex: Female Functional Status Question Answer Note LastModified by Organizat ion Details LastModified Time Are you able to care for yourself? No gets some help Information not available 06/25/2024 What is your exercise level? None Information not available 01/19/2024 Mental Status None recorded. Family History Relationship Description Onset Age of this Age Resolved Age Notes LastModified by Organization Details LastModified Time Brother Cerebrovascu lar accident [email or web address] Not available 0 01/19/2024 11:22:27 Brother Heart disease [email or web address] Not available 10/2023 11:22:33 Brother Hypertensive disorder [email or web address] Not available 10/2023 11:22:40 Medical History Condition Response Coronary Artery Disease N Other N High Blood Pressure N Atrial Fibrillation N Thyroid Problems Y Kidney or Bladder Problems N Depression N COPD Y Blood Clots Y GI Problems N Have you had a mammogram in the last yea r? N Skin Problems N Anemia N Heart Attack (NH) N Anxiety Disorder N Diabetes N Muscle, Joint, or Bone Problems N Seizures/Epilepsy N Have you had a colonoscopy in the last 1 0 years? N Acid Reflux (GERD) N Cancer N Stroke N Asthma N Allergies N Have you had a PSA blood test in the las t year? N High Cholesterol N Hepatitis N Liver Disease N Headaches N Osteoporosis N Heart Failure N Gynecological HistoryNo gynecological history recorded. Obstetrics History GPAL:G 0 P 0 0 0 0 Immunizations Vaccine Type Date Status Note Provider Nam e and Address Organization Details Recorded Time Influenza, high-dose, quadrivalent, PF 3 completed Benjamin Lan [place], [place] [facility] 06/11/2024 15:56:20 Influenza, adjuvanted, quadrivalent, PF 0 completed YEIMI Riggs, [place] [facility] 06/11/2024 15:56:20 COVID-19, mRNA, LNP-S, PF, 30 mcg/0.3 mL dose 1 completed Benjamin Lan [place] null, [place] [facility] 06/11/2024 15:56:20 COVID-19, mRNA, LNP-S, PF, 30 mcg/0.3 mL dose 1 completed Benjamin Lan [place] [facility] 06/11/2024 15:56:20 COVID-19, mRNA, LNP-S, PF, 30 mcg/0.3 mL dose 1 completed Benjamin Lan [place] [facility] 06/11/2024 15:56:20 Pneumococcal conjugate PCV20, polysaccharide [id number] conjugate, adjuvant, PF 3 completed Benjamin [place] [facility] 06/11/2024 15:56:20 Tdap 2 completed Benjamin [place] [facility] 06/11/2024 15:56:20 Tdap 1 [place] YEIMI [place] [facility] 06/11/2024 15:56:20 Influenza, high-dose, trivalent, PF 4 completed Benjamin Lan [place] [facility] 06/11/2024 15:56:20 Influenza, high-dose, trivalent, PF 8 completed Benjamin [place] [facility] 06/11/2024 15:56:20 Influenza, high-dose, trivalent, PF 6 completed Benjamin [place] [facility] 06/11/2024 15:56:20 Influenza, high-dose, trivalent, PF 7 completed Benjamin [place] [facility] 06/11/2024 15:56:20 Influenza, high-dose, trivalent, PF 7 completed Benjamin [place] [facility] 06/11/2024 15:56:20 Influenza, high-dose, trivalent, PF 9 completed Benjamin [place] [facility] 06/11/2024 15:56:20 Influenza, split virus, trivalent, preservative 3 completed [place] [facility] 06/11/2024 15:56:20 Influenza, split virus, trivalent, PF 5 completed Benjamin Lan MA null, [facility] 06/11/2024 15:56:20 Influenza, split virus, quadrivalent, PF 1 completed Benjamin Lan MA null, [facility] 06/11/2024 15:56:20 Influenza, high-dose, trivalent, PF 4 completed Keyon Ritter MD Attn: Accounting,[address] [facility], [place], [address], [facility] 06/30/2024 14:59:55 Past Encounters Encounter ID Performer Location Encounter Start Date Encounter Closed Date Diagnosis/Indication Diagnosis SNOMED-CT Code Diagnosis ICD10 Code Diagnosis Note [id number] Keyon Ritter MD [facility] [place] [address] [place] [address] 01/19/2024 11:00:12 01/19/2024 11:55:12 Anxiety 02584754 F41.9 Chronic ob structive pulmonary disease 55285057 J44.9 Hypothyroidism 28058477 E03.9 Essential hypertension 21945207 I10 [id number] Keyon Ritter MD [facility] [facility] [place] [address] [place] [address] 06/11/2024 14:42:18 06/11/2024 15:55:09 Essential hypertension 76871153 I10 Hypothyroidism 99768547 E03.9 Diabetes m ellitus screening 120195633 Z13.1 Chronic hy poxemic respiratory failure 628724110 J96.11 Colonoscopy declined 907 4156811 81561 Z53.20 Mammogram declined 77281 5004 Z53.20 [id number] Keyon Ritter MD [facility] [facility] [place] [address] [place] [address] 06/25/2024 14:21:39 06/25/2024 15:13:26 Adult health examination 794803838 Z00.00 Health Risk Assessment collected and reviewed Obesity 766810439 E66.9 Administra tion of influenza vaccine 83282716 Z23 Colonoscopy declined 724 6234372 80379 Z53.20 Mammogram declined 02636 5004 Z53.20 [id number] Keyon Ritter MD [facility] [place] [address] [place] [address] 09/10/2024 13:56:18 09/10/2024 15:20:43 Body mass index 30+ - obesity 853691775 Z68.32 Obesity 550823071 E66.9 Chronic ob structive pulmonary disease 82034558 J44.9 Anxiety 29616721 F41.9 Essential hypertension 83849536 I10 Hypothyroidism 13212931 E03.9 Chronic hy poxemic respiratory failure 532840513 J96.11 [id number] Benjamin Lan MA [facility] [place] [address] [place] [address] 01/07/2025 13:57:50 01/07/2025 15:13:38 Body mass index 30+ - obesity 436513854 Z68.30 Overweight 518197826 E66 .3 Essential hypertension 85910973 I10 Hypothyroidism 30702229 E03.9 Health Concerns Section Related Observation LastModified by Organization Detai ls LastModified Time None Recorded Concern Status LastModified by Organization Details LastModified Time None Recorded Advance Directives Directive N: Payers Encounter Date Sequence Insurance Name Policy Number Policy Myers Covered Member ID Myers Member ID Guarantor Name 01/19/2024 1 [facility] (MEDICARE REPLACEMENT/A DVANTAGE - HMO) [id number] Luba Sotelo [id number] Luba Sotelo 06/11/2024 1 [facility] (MEDICARE REPLACEMENT/A DVANTAGE - HMO) [id number] Luba Sotelo [id number] Luba Sotelo 06/25/2024 1 [facility] (MEDICARE REPLACEMENT/A DVANTAGE - HMO) [id number] Luba Sotelo [id number] Luba Sotelo 09/10/2024 1 [facility] (MEDICARE REPLACEMENT/A DVANTAGE - HMO) [id number] Luba Sotelo [id number] Luba Sotelo Notes Date Note Type Note Provider Name and Address Organization Details Recorded Time 01/19/2024 text/html [id number] follow-up of her medical problems ld with anxiety COPD hypothyroidism and hypertension hypertension no headache no dizziness COPD with chronic hypoxic respiratory failure she is maintained on 3 L of oxygen hypothyroidism no heat or cold intolerance anxiety she is maintained on benzodiazepines Keyon Ritter MD Attn: Accounting,[address], [place], [address], [facility] 01/19/2024 22:56:14 06/11/2024 text/html COPD no cough or wheezing. Chronic hypoxic respiratory failure still on 2 L of oxygen hypothyroid no heat or cold intolerance. She is due for some blood work and she is having trouble with her anxiety has been very high she saw her eye doctor there some issues that they are considering she may have complications of diabetes also there was some issue of possibly having some carotid artery disease so the eye doctor he is getting a carotid duplex I will get her checked for A1c Keyon Ritter MD Attn: Accounting,[address], [place], [address], [facility] 06/11/2024 22:36:00 06/25/2024 text/html MAW 2Reported bypatient.Diet and Nutrition:healthy diet Fracture Risk:no history of fractures; no sudden unexplained fractures Concentration and Memory:no decreased concentrating ability; no memory lapses or loss; does not forget words Speech/Motor difficulties:no speech difficulties; no difficulty expressing formulated concepts; no difficulty with fine manipulative tasks; no difficulty writing/copying; no slowed reaction time; does not knock things over when trying to pick them up Hearing:loss of hearing: in both ears Vision:worse both distance and near(cataracts);incre ased sensitivity to glare Activities of Daily Living:able to contol urination and bowels; able to dress with limited or no assistance; able to feed self with limited or no assistance; able to get out of chair or bed with limited or no assistance; able to groom with limited or no assistance; able to toilet with limited or no assistance;unable to bathe without assistance Instrumental Activities of Daily Living:able to manage medications with limited or no assistance; able to manage money with limited or no assistance; able to use the phone with limited or no assistance;unable to do house work without assistance;unable to grocery shop without assistance;unable to to prepare meals without assistance Falls Risk Assessment:no frequent falls while walking; no fall since last visit; no dizziness/vertigo; fall(s) in the past year 1;injury with fall Home Safety:reviewed sun protection; no unsafe xiomara hazzards; no unsafe stairs; working smoke/CO detectors; practicing 'safer sex'; no fire arms; good lighting in the home;does not have hand bars in the bathroom/shower Keyon Ritter MD Attn: Accounting,[address] [place], [address], [facility] 06/30/2024 15:00:45 09/10/2024 text/html Follow up of her medical problems COPD no cough wheezing or shortness of breath at this time. Anxiety doing well on her current medical regimen hypertension blood pressure has been controlled hypothyroid she is always a little bit tired but there has not been any heat or cold intolerance Keyon Ritter MD Attn: Accounting,[address] [place], [address], [facility] 09/22/2024 21:14:26 OBGyn Episode No OBEpisode recorded.
== END 2025-01-07 14:12 | disposition home or self-care (01) ==
LOC: ANHLAB 14:14
PROVIDERS: PCP Internal Medicine; Visit Provider Internal Medicine
DX: E03.9 Hypothyroidism, unspecified (principal); I10 Essential (primary) hypertension
CPT/HCPCS: 36415; 80053; 80061; 84439; 84443; 84481; 85025

== ENCOUNTER 2025-02-13 10:58 | Outpatient (CLI) | payer MEDICARE, SELFPAY ==
--- OUTSIDE RECORDS SUMMARY | 2025-02-13 11:07 | XMS_ITS | Clinical Summary ---
Author Organization [facility] Address [address] [place] [address] Care Team Providers Care Audio Visual Specialist Name Role Phone Unavailable Primary Care Provider Unavailabl e Source Comments [facility],non-owned Affiliates and Associated Physician Practices is amultiple site organization consisting of ambulatory clinics and hospital sitesin [place], [place], [place] and [place]. This disclosure is being madepursuant to the Care Everywhere program and may not contain all information available regarding this patient. Last updated 18.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 Gender Identity Not on file Sexual Orientation Not on file Last Filed Vital Signs Vital Sign Reading Time Taken Comments Blood Pressure 145/86 11/26/2021 12:04 AM EXTRUDING DEPARTMENT SUPERVISOR Pulse 77 11/26/2021 9:01 AM EXTRUDING DEPARTMENT SUPERVISOR Temperature 36.3 C (97.3 F) 11/25/2021 5:22 PM EXTRUDING DEPARTMENT SUPERVISOR Respiratory Rate 9 11/26/2021 9:01 AM EXTRUDING DEPARTMENT SUPERVISOR Oxygen Saturation 100% 11/26/2021 9:01 AM EXTRUDING DEPARTMENT SUPERVISOR Inhaled Oxygen Concentration - - Weight 94.3 kg (208 lb) 11/25/2021 5:07 PM EXTRUDING DEPARTMENT SUPERVISOR Height - - Body Mass Index - [...] patient's age to complete this [place] [address] [facility] [place] [address] [facility] MANAGED MEDICARE ADV
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
--- OUTSIDE RECORDS SUMMARY | 2025-02-13 11:07 | XMS_ITS | Data Portability ---
Author Organization [facility] [place] Address [address] [place] [address] Care Team Providers Care Hand Painter Name Role Phone KEYON RITTER Primary Care Provider Assessment Encounter Date Assessment Date Assessment LastModified by Organization Details LastModified Time 01/19/2024 01/19/2024 We will continue with her medications they have been reviewed get her old records she is unsure of immunizations and screenings diagnosis and assessment and plan have been discussed follow-up with me in 4 months [email or web address] Not available 01/19/2024 22:55:55 06/11/2024 06/11/2024 increase lorazepam to 1 mg t.i.d. p.r.n. blood work continue oxygen stay up-to-date on immunizations she declines any cancer screenings follow up 3 months [email or web address] Not available 06/11/2024 22:35:05 06/25/2024 06/25/2024 assessments have been discussed flu shot will be administered healthy lifestyle care instructions. All questions answered immunizations and screenings ordered were appropriate and patient agreeable [email or web address] Not available 06/30/2024 14:59:55 09/10/2024 09/10/2024 continue with medications clinically she has been stable her last blood work reviewed she did start the atorvastatin she is trying to drink a little bit more water healthy lifestyle care instructions she refuses any immunizations and she refuses any screenings. Follow up with me in 4 months [email or web address] Not available 09/22/2024 21:13:47 01/07/2025 01/07/2025 ABIs CBC CMP lipid T3-T4 TSH she will follow up in 3 months [email or web address] Not available 01/20/2025 17:41:33 Plan of Treatment Reminders Order Date Submit Date Provider Last Modified By Organization Details Last Modified Time Details Appointments ANY 15 2024 01:15P Imani Ritter MD Not available Not available Not available Lab lipid panel, serum 2024 025 [place] [facility], [address], [place], [address], 01/07/2025 17:51:50 CBC w/ auto diff 2024 025 [place] [id number] [facility], [address], [place], [address], 01/07/2025 17:51:29 CMP, serum or plasma 2024 025 [facility], [address], [place], [address], 01/10/2025 12:40:20 T4, free, serum 2024 025 [place] [address] [facility], [address], [place], [address], 01/07/2025 17:51:29 T3, free, serum or plasma 2024 025 [place] [address] [facility], [address], [place], [address], 01/07/2025 17:51:29 TSH, ultra-sen sitive, serum 2024 025 [place] [facility], [address], [place], [address], 01/07/2025 17:51:50 unlisted lab - T4, free 2023 024 [email or web address], [address], [place], [address], 09/04/2024 15:25:05 T3, free, serum or plasma 2023 024 [place] [facility], [address], [place], [address], 08/17/2024 07:37:33 TSH, ultra-sen sitive, serum 2023 024 [place] [facility], [address], [place], [address], 09/10/2024 15:40:41 lipid panel, serum 2023 024 [facility], [address], [place], [address], 09/10/2024 15:40:41 CMP, serum or plasma 2023 024 [place] [facility], [address], [place], [address], 08/15/2024 15:40:37 CBC w/ auto diff 2023 024 [facility] [facility], [address], [place], [address], 06/14/2024 11:08:23 HbA1c (hemoglob in A1c), blood 2023 024 [email or web address] [facility], [address], [place], [address], 07/17/2024 17:20:37 CBC w/ auto diff 2023 024 [facility], [address], [place], [address], 01/28/2024 08:21:40 lipid panel, serum 2023 024 [facility], [address], [place], [address], 01/28/2024 08:21:38 CMP, serum or plasma 2023 024 [facility] [facility], [address], [place], [address], 01/28/2024 08:21:39 T3, free, serum or plasma 2023 024 [facility], [address], [place], [address], 01/28/2024 08:21:40 TSH, ultra-sen sitive, serum 2023 024 [facility], [address], [place], [address], 01/28/2024 08:21:39 T4, free, serum 2023 024 [facility], [address], [place], [address], 01/28/2024 08:21:41 Referral None recorded. Procedures None recorded. Surgeries None recorded. Imaging ankle brachial index - with toe pressure* 2024 025 [facility], [address], [place], [address], 01/22/2025 15:54:25 Medication Orders None recorded. Patient TargetsNo targets recorded. Patient Instructions Encounter Date Encounter Id Patient Instructions Last Modified By Organization Details Last Modified Time 06/25/2024 [id number] A healthy lifestyle: care instructions [email or web address] Not available 06/25/2024 15:24:29 preventing falls : care instructions [email or web address] Not available 06/25/2024 15:24:29 Medicare [facility] Preventive Checklist [email or web address] Not available 06/25/2024 15:24:29 09/10/2024 [id number] A healthy lifestyle: care instructions [email or web address] Not available 09/10/2024 17:46:32 01/07/2025 [id number] A healthy lifestyle: care instructions [email or web address] Not available 01/07/2025 17:51:29 Reason for Referral None Reported. Results Created Date Observation Date Name Description Value Unit Range Abnormal Flag Note LastModifiedBy Organization Detail LastModifiedTime 01/27/20 24 01/28/2024 LIPID PANEL cholesterol, total 197 mg/dL 100-19 9 Not Available [facility] ([facility]) [address] [place], [address], 01/28/2024 08:21:38 01/27/20 24 01/28/2024 LIPID PANEL triglyceride s 150 mg/dL 0-149 above high normal Not Available [facility] ([facility]) [address] [place], [address], 01/28/2024 08:21:38 01/27/20 24 01/28/2024 LIPID PANEL HDL cholesterol 62 mg/dL >39 Not Available [facility] ([facility]) [address] [place], [address], 01/28/2024 08:21:38 01/27/20 24 01/28/2024 LIPID PANEL VLDL cholesterol enrico 26 mg/dL 5-40 Not Available [facility] ([facility]) [address] [place], [address], 01/28/2024 08:21:38 01/27/20 24 01/28/2024 LIPID PANEL LDL chol calc ([facility]) 109 mg/dL 0-99 above high normal Not Available [facility] ([facility]) [address] [place], [address], 01/28/2024 08:21:38 01/27/20 24 01/28/2024 COMP. METAB OLIC PANEL (14) glucose 86 mg/dL 70-99 Not Available [facility] ([facility]) [address] [place], [address], 01/28/2024 08:21:38 01/27/20 24 01/28/2024 COMP. METAB OLIC PANEL (14) BUN 25 mg/dL 8-27 Not Available [facility] ([facility]) [address] [place], [address], 01/28/2024 08:21:38 01/27/20 24 01/28/2024 COMP. METAB OLIC PANEL (14) creatinine 1.44 mg/dL 0.57-1 .00 above high normal Not Available [facility] ([facility]) [address] [place], [address], 01/28/2024 08:21:38 01/27/20 24 01/28/2024 COMP. METAB OLIC PANEL (14) eGFR 37 mL/mi n/1.7 3 >59 below low normal Not Available [facility] ([facility]) [address] [place], [address], 01/28/2024 08:21:38 01/27/20 24 01/28/2024 COMP. METAB OLIC PANEL (14) BUN/creatini ne ratio 17 12-28 Not Available [facility] ([facility]) [address] [place], [address], 01/28/2024 08:21:38 01/27/20 24 01/28/2024 COMP. METAB OLIC PANEL (14) sodium 140 mmol/ L 134-14 4 Not Available [facility] ([facility]) [address] [place], [address], 01/28/2024 08:21:38 01/27/20 24 01/28/2024 COMP. METAB OLIC PANEL (14) potassium 5.5 mmol/ L 3.5-5. 2 above high normal Not Available [facility] ([facility]) [address] [place], [address], 01/28/2024 08:21:38 01/27/20 24 01/28/2024 COMP. METAB OLIC PANEL (14) chloride 100 mmol/ L 96-106 Not Available [facility] ([facility]) [address] [place], [address], 01/28/2024 08:21:38 01/27/20 24 01/28/2024 COMP. METAB OLIC PANEL (14) carbon dioxide, total 26 mmol/ L 20-29 Not Available [facility] ([facility]) [address], [place], [address], 01/28/2024 08:21:38 01/27/20 24 01/28/2024 COMP. METAB OLIC PANEL (14) calcium 9.5 mg/dL 8.7-10 .3 Not Available [facility] ([facility]) [address], [place], [address], 01/28/2024 08:21:38 01/27/20 24 01/28/2024 COMP. METAB OLIC PANEL (14) protein, total 6.6 g/dL 6.0-8. 5 Not Available [facility] ([facility]) [address], [place], [address], 01/28/2024 08:21:38 01/27/20 24 01/28/2024 COMP. METAB OLIC PANEL (14) albumin 4.3 g/dL 3.8-4. 8 Not Available [facility] ([facility]) [address], [place], [address], 01/28/2024 08:21:38 01/27/20 24 01/28/2024 COMP. METAB OLIC PANEL (14) globulin, total 2.3 g/dL 1.5-4. 5 Not Available [facility] ([facility]) [address], [place], [address], 01/28/2024 08:21:38 01/27/20 24 01/28/2024 COMP. METAB OLIC PANEL (14) A/G ratio 1.9 1.2-2. 2 Not Available [facility] ([facility]) [address], [place], [address], 01/28/2024 08:21:38 01/27/20 24 01/28/2024 COMP. METAB OLIC PANEL (14) bilirubin, total 0.4 mg/dL 0.0-1. 2 Not Available [facility] ([facility]) [address], [place], [address], 01/28/2024 08:21:38 01/27/20 24 01/28/2024 COMP. METAB OLIC PANEL (14) alkaline phosphatase 103 IU/L 44-121 Not Available [facility] ([facility]) [address], [place], [address], 01/28/2024 08:21:38 01/27/20 24 01/28/2024 COMP. METAB OLIC PANEL (14) AST (SGOT) 12 IU/L 0-40 Not Available [facility] ([facility]) [address], [place], [address], 01/28/2024 08:21:38 01/27/20 24 01/28/2024 COMP. METAB OLIC PANEL (14) ALT (SGPT) 6 IU/L 0-32 Not Available [facility] ([facility]) [address], [place], [address], 01/28/2024 08:21:38 01/27/20 24 01/28/2024 TSH TSH 1.390 uIU/m L 0.450- 4.500 Not Available [facility] ([facility]) [address] [place], [address], 01/28/2024 08:21:39 01/27/20 24 01/28/2024 CBC WITH DIFFE RENTI AL/PL ATELE T WBC 7.7 x10e3 /uL 3.4-10 .8 Not Available [facility] ([facility]) [address], [place], [address], 01/28/2024 08:21:40 01/27/20 24 01/28/2024 CBC WITH DIFFE RENTI AL/PL ATELE T RBC 4.05 x10e6 /uL 3.77-5 .28 Not Available [facility] ([facility]) [address], [place], [address], 01/28/2024 08:21:40 01/27/20 24 01/28/2024 CBC WITH DIFFE RENTI AL/PL ATELE T hemoglobin 11.5 g/dL 11.1-1 5.9 Not Available [facility] ([facility]) [address], [place], [address], 01/28/2024 08:21:40 01/27/2001/28/2024 CBC WITH DIFFE RENTI AL/PL ATELE T hematocrit 36.8 % 34.0-4 6.6 Not Available [facility] ([facility]) [address] [place], [address], 01/28/2024 08:21:40 01/27/20 24 01/28/2024 CBC WITH DIFFE RENTI AL/PL ATELE T MCV 91 fL 79-97 Not Available [facility] ([facility]) [address] [place], [address], 01/28/2024 08:21:40 01/27/20 24 01/28/2024 CBC WITH DIFFE RENTI AL/PL ATELE T MCH 28.4 pg 26.6-3 3.0 Not Available [facility] ([facility]) [address] [place], [address], 01/28/2024 08:21:40 01/27/20 24 01/28/2024 CBC WITH DIFFE RENTI AL/PL ATELE T MCHC 31.3 g/dL 31.5-3 5.7 below low normal Not Available [facility] ([facility]) [address] [place], [address], 01/28/2024 08:21:40 01/27/20 24 01/28/2024 CBC WITH DIFFE RENTI AL/PL ATELE T RDW 12.8 % 11.7-1 5.4 Not Available [facility] ([facility]) [address], [place], [address], 01/28/2024 08:21:40 01/27/20 24 01/28/2024 CBC WITH DIFFE RENTI AL/PL ATELE T platelets 229 x10e3 /uL 150-45 0 Not Available [facility] ([facility]) [address], [place], [address], 01/28/2024 08:21:40 01/27/20 24 01/28/2024 CBC WITH DIFFE RENTI AL/PL ATELE T neutrophils 70 % notest ab. Not Available [facility] ([facility]) [address], [place], [address], 01/28/2024 08:21:40 01/27/20 24 01/28/2024 CBC WITH DIFFE RENTI AL/PL ATELE T lymphs 20 % notest ab. Not Available [facility] ([facility]) [address], [place], [address], 01/28/2024 08:21:40 01/27/20 24 01/28/2024 CBC WITH DIFFE RENTI AL/PL ATELE T monocytes 6 % notest ab. Not Available [facility] ([facility]) [address], [place], [address], 01/28/2024 08:21:40 01/27/20 24 01/28/2024 CBC WITH DIFFE RENTI AL/PL ATELE T eos 2 % notest ab. Not Available [facility] ([facility]) [address], [place], [address], 01/28/2024 08:21:40 01/27/20 24 01/28/2024 CBC WITH DIFFE RENTI AL/PL ATELE T basos 1 % notest ab. Not Available [facility] ([facility]) [address], [place], [address], 01/28/2024 08:21:40 01/27/20 24 01/28/2024 CBC WITH DIFFE RENTI AL/PL ATELE T neutrophils (absolute) 5.4 x10e3 /uL 1.4-7. 0 Not Available [facility] ([facility]) [address], [place], [address], 01/28/2024 08:21:40 01/27/20 24 01/28/2024 CBC WITH DIFFE RENTI AL/PL ATELE T lymphs (absolute) 1.6 x10e3 /uL 0.7-3. 1 Not Available [facility] ([facility]) [address], [place], [address], 01/28/2024 08:21:40 01/27/20 24 01/28/2024 CBC WITH DIFFE RENTI AL/PL ATELE T monocytes(ab solute) 0.5 x10e3 /uL 0.1-0. 9 Not Available [facility] ([facility]) [address], [place], [address], 01/28/2024 08:21:40 01/27/20 24 01/28/2024 CBC WITH DIFFE RENTI AL/PL ATELE T eos (absolute) 0.2 x10e3 /uL 0.0-0. 4 Not Available [facility] ([facility]) [address], [place], [address], 01/28/2024 08:21:40 01/27/20 24 01/28/2024 CBC WITH DIFFE RENTI AL/PL ATELE T baso (absolute) 0.1 x10e3 /uL 0.0-0. 2 Not Available [facility] ([facility]) [address] [place], [address], 01/28/2024 08:21:40 01/27/20 24 01/28/2024 CBC WITH DIFFE RENTI AL/PL ATELE T immature granulocytes 1 % notest ab. Not Available [facility] ([facility]) [address] [place], [address], 01/28/2024 08:21:40 01/27/20 24 01/28/2024 CBC WITH DIFFE RENTI AL/PL ATELE T immature grans (abs) 0.0 x10e3 /uL 0.0-0. 1 Not Available [facility] ([facility]) [address], [place], [address], 01/28/2024 08:21:40 01/27/2001/28/2024 TRIIO DOTHY ANGELO E (T3), FREE triiodothyro nine (T3), free 1.9 pg/mL 2.0-4. 4 below low normal Not Available [facility] ([facility]) [address] [place], [address], 01/28/2024 08:21:40 01/27/20 24 01/28/2024 T4,FR EE(DI RECT) T4,free(dire ct) 1.78 NG/dL 0.82-1 .77 above high normal Not Available [facility] ([facility]) [address] [place], [address], 01/28/2024 08:21:41 Result Notes None recorded. Problems Name Problem SNOMED Code Status Onset Date Resolution Date Notes Provider Name and Address Organization Details Recorded Time Anxiety 47374691 Active 2023 YEIMI Riggs, [place] - [facility] 11:52:26 Chronic obstructive pulmonary disease 84935290 Active 2023 Benjamin Lan [place], [place] [facility] 11:52:26 Hypothyroid ism 85223740 Active 2023 Benjamin [place] [facility] 11:52:27 Essential hypertensio n 31476525 Active 2023 Benjamin Lan [place], [place] [facility] 11:52:28 Chronic hypoxemic respiratory failure 959921435 Active 2023 Keyon Ritter MD Attn: Anthony segundo,[address] [facility], [place], [address], [facility] - [facility] 4 22:34:27 Mammogram declined 531814228 Active 2023 Keyon Ritter MD Attn: Anthony segundo,[address] [facility], [place], [address], [facility] - [facility] 4 22:35:24 Colonoscopy declined 6613765797556 00 Active 2023 Keyon Ritter MD Attn: Anthony segundo,[address] [facility], [place], [address], [facility] - [facility] 22:35:25 Problem Notes None recorded. Procedures Surgical History Date Name Laterality Status Provider Name and Address Organization Details Recorded Time Back Surgery completed Rosanna Gimenez MA [facility] 01/19/2024 11:24:22 ligation of bilateral fallopian tubes completed Rosanna Gimenez MA [facility] 01/19/2024 11:24:42 Imaging Results None recorded. Procedure [...] TABLET BY MOUTH THREE TIMES A DAY 2024 active Not Available Not Available Not Avai lable spironola ctone 25 mg tablet TAKE 1 [...] BY MOUTH EVERY DAY BEFORE BREAKFAS T 2024 active Not Available Not Available Not Avai lable Incruse Ellipta 62.5 mcg/actua tion powder for inhalatio n INHALE ONE PUFF BY MOUTH DAILY active Not Available Not Available No t Available Vitals Date Recorded Body height Body mass index (BMI) Body weight Heart rate Oxygen saturation Oxygen saturation in Arterial blood by Pulse oximetry Inhaled oxygen flow rate Systolic blood pressure Diastolic blood pressure Provider Name and Address Organization Details Last Updated DateTime 5 165.1 cm 30.8 kg/m2 16659.6 7 g 99 /min 85 % 85 % 2 L/min 132 mm[Hg] 78 mm[Hg] Inez Rothman [place] - [facility] 5 14:22:33 Date Recorded Body weight Body mass index (BMI) Body height Heart rate Oxygen saturation Oxygen saturation in Arterial blood by Pulse oximetry Inhaled oxygen flow rate Systolic blood pressure Diastolic blood pressure Provider Name and Address Organization Details Last Updated DateTime 4 39631.3 3 g 32.1 kg/m2 165.1 cm 60 /min 93 % 93 % 3 L/min 140 mm[Hg] 90 mm[Hg] Rosanna Gimenez [place] - [facility] 4 11:29:17 Date Recorded Body height Body mass index (BMI) Body weight Heart rate Oxygen saturation Oxygen saturation in Arterial blood by Pulse oximetry Inhaled oxygen flow rate Systolic blood pressure Diastolic blood pressure Provider Name and Address Organization Details Last Updated DateTime 4 165.1 cm 32.2 kg/m2 49161.1 2 g 62 /min 93 % 93 % 2 L/min 132 mm[Hg] 70 mm[Hg] Mona Euceda [place] - [facility] 4 14:54:32 Date Recorded Body height Body mass index (BMI) Body weight Heart rate Oxygen saturation Oxygen saturation in Arterial blood by Pulse oximetry Inhaled oxygen flow rate Systolic blood pressure Diastolic blood pressure Provider Name and Address Organization Details Last Updated DateTime 4 165.1 cm 32.6 kg/m2 06536.2 5 g 96 /min 85 % 85 % 2 L/min 120 mm[Hg] 70 mm[Hg] Inez Rothman MA [facility] 14:39:57 Date Recorded Body height Body mass index (BMI) Body weight Heart rate Oxygen saturation Oxygen saturation in Arterial blood by Pulse oximetry Inhaled oxygen flow rate Systolic blood pressure Diastolic blood pressure Provider Name and Address Organization Details Last Updated DateTime 165.1 cm 32.1 kg/m2 21402.6 1 g 102 /min 95 % 95 % 4 L/min 126 mm[Hg] 72 mm[Hg] Inez Rothman MA [facility] 4 14:36:48 Social History Question Answer Notes LastModified by Organizat ion Details LastModified Time Tobacco Smoking Status Former Smoker quit 15 years ago Olamide perez, [facility] 06/25/2024 14:46:18 Do You Have An Advance Directive? No Information not available 01/19/2024 Are You Blind Or Do You Have [...] No Information not available 06/11/2024 Are You Deaf Or Do You Have [...] 7 Days, How Much Pain Have You [place]? None Information not available 06/25/2024 In General, [...] Past 7 Days, How Often Have You [place] Sleepy In The Daytime? Usually Information not [...] PPD Information not available 01/19/2024 Do You Use Sunscreen Routinely? Yes Information not available 01/19/2024 Has Tobacco Cessation Counseling Been Provided? No Information not available 01/19/2024 How Many Years Have You Smoked Tobacco? 40 Information not available 01/19/2024 Sex: Female Functional Status Question Answer Note LastModified by Organizat ion Details LastModified Time Do you use any illicit or recreational drugs? No Information not available 01/19/2024 Do you or have you ever used any other forms of tobacco or nicotine? No Information not available 01/19/2024 What is your level of alcohol consumption? None Information not available 06/25/2024 Are you currently employed? No Information not available 01/19/2024 Are you able to care for yourself? No gets some help Information not available 06/25/2024 What is your exercise level? None Information not available 01/19/2024 Mental Status Question Answer Note LastModified by Organization D etails LastModified Time Do you feel stressed (tense, restless, nervous, or anxious, or unable to sleep at night)? [id number] Information not available 06/25/2024 Family History Relationship Description Onset Age of [...] Problems Y Kidney or Bladder Problems N Blood Clots Y COPD Y Depression N GI Problems N Have you had a mammogram in the last yea r? N Skin Problems N Anemia N Heart Attack (CT) N Anxiety Disorder N Diabetes N Muscle, Joint, or Bone Problems N Seizures/Epilepsy N Have you had a colonoscopy in the last 1 0 years? N Acid Reflux (GERD) N Cancer N Stroke N Asthma N Allergies N Have you had a PSA blood test in the las t year? N High Cholesterol N Hepatitis N Liver Disease N Headaches N Heart Failure N Osteoporosis N Gynecological HistoryNo gynecological history recorded. Obstetrics History GPAL:G 0 P 0 0 0 0 Immunizations Vaccine Type Date Status Note Provider Nam e and Address Organization Details Recorded Time Influenza, high-dose, quadrivalent, PF 3 completed YEIMI [place] [facility] 06/11/2024 15:56:20 Influenza, adjuvanted, quadrivalent, PF 0 completed [place] [facility] 06/11/2024 15:56:20 COVID-19, mRNA, LNP-S, PF, 30 mcg/0.3 mL dose 1 completed YE[place] [facility] 06/11/2024 15:56:20 COVID-19, mRNA, LNP-S, PF, 30 mcg/0.3 mL dose 1 completed [place] [facility] 06/11/2024 15:56:20 COVID-19, mRNA, LNP-S, PF, 30 mcg/0.3 mL dose 1 completed Benjamin Lan [place] [facility] 06/11/2024 15:56:20 Pneumococcal conjugate PCV20, polysaccharide [id number] conjugate, adjuvant, PF 3 completed [place]IMI [place] [facility] 06/11/2024 15:56:20 Tdap 2 completed Benjamin Lan [place] [facility] 06/11/2024 15:56:20 Tdap 1 completed [place] [facility] 06/11/2024 15:56:20 Influenza, high-dose, trivalent, PF 4 completed [place] [facility] 06/11/2024 15:56:20 Influenza, high-dose, trivalent, PF 8 completed [place] Lan [place] [facility] 06/11/2024 15:56:20 Influenza, high-dose, trivalent, PF 6 completed [place] [facility] 06/11/2024 [...] Influenza, split virus, trivalent, PF 5 completed [place] [facility] 06/11/2024 15:56:20 Influenza, split virus, quadrivalent, PF 1 completed YEIMI Riggs, [facility] 06/11/2024 15:56:20 Influenza, high-dose, trivalent, PF 4 completed Keyon Ritter MD Attn: Accounting,[address] [facility], [place], [address], [facility] - [facility] 06/30/2024 14:59:55 Past Encounters Encounter ID Performer Location Encounter Start Date Encounter Closed Date Diagnosis/Indication Diagnosis SNOMED-CT Code Diagnosis ICD10 Code Diagnosis Note [id number] Keyon Ritter MD ON LICENSE OF [facility] [place] [address] [place] [id number] 01/19/2024 11:00:12 01/19/2024 11:55:12 Anxiety 53451216 F41.9 Chronic ob structive pulmonary disease 78848518 J44.9 Hypothyroidism 38114064 E03.9 Essential hypertension 11163162 I10 [id number] Keyon Ritter MD ON LICENSE OF [facility] [place] [address] [place] [id number] 06/11/2024 14:42:18 06/11/2024 15:55:09 Essential hypertension 33352393 I10 Hypothyroidism 32395368 E03.9 Diabetes m ellitus screening 358177073 Z13.1 Chronic hy poxemic respiratory failure 467466326 J96.11 Colonoscopy declined 931 [id number] 32954 Z53.20 Mammogram declined 21906 5004 Z53.20 [id number] Keyon Ritter MD ON LICENSE OF [facility] [place] [address] [place] [address] 06/25/2024 14:21:39 06/25/2024 15:13:26 Adult health examination 834473516 Z00.00 Health Risk Assessment collected and reviewed Obesity 693307312 E66.9 Administra tion of influenza vaccine 36092021 Z23 Colonoscopy declined [id number] Z53.20 Mammogram declined [id number] Z53.20 [id number] Keyon Ritter MD ON LICENSE OF [facility] [place] [address] [place] [address] 09/10/2024 13:56:18 09/10/2024 15:20:43 Body mass index 30+ - obesity 626994188 Z68.32 Obesity 499193027 E66.9 Chronic ob structive pulmonary disease 09447517 J44.9 Anxiety 04785220 F41.9 Essential hypertension 25163026 I10 Hypothyroidism 73873934 E03.9 Chronic hy poxemic respiratory failure 467967956 J96.11 [id number] Keyon Ritter MD ON LICENSE OF [facility] [place] [address] [place] [address] 01/07/2025 13:57:50 01/07/2025 15:13:38 Body mass index 30+ - obesity 512710342 Z68.30 Overweight 085520521 E66 .3 Essential hypertension 93461538 I10 Hypothyroidism 49056441 E03.9 Peripheral arterial disease 580127423 I73.9 Chronic hy poxemic respiratory failure 054630699 J96.11 Anxiety 33338216 F41.9 Chronic ob structive pulmonary disease 89529660 J44.9 Health Concerns Section Related Observation LastModified by Organization Detai ls LastModified Time None Recorded Concern Status LastModified by Organization Details LastModified Time None Recorded Advance Directives Directive N: Payers Encounter Date Sequence Insurance Name Policy Number Policy Myers Covered Member ID Myers Member ID Guarantor Name 01/19/2024 1 [facility] (MEDICARE REPLACEMENT/A DVANTAGE - HMO) [id number] Luba Sotelo [id number] Luba Sotelo 06/11/2024 1 [facility] (MEDICARE REPLACEMENT/A DVANTAGE - HMO) [id number] Luba Sotelo [id number] Luba Sotelo 06/25/2024 1 [facility] (MEDICARE REPLACEMENT/A DVANTAGE - HMO) [id number] Luba Sotelo [id number] Luba Sotelo 09/10/2024 1 [employer] (MEDICARE REPLACEMENT/A DVANTAGE - HMO) [id number] Luba Sotelo [id number] Luba Sotelo 01/07/2025 1 [facility] (MEDICARE REPLACEMENT/A DVANTAGE - HMO) [id number] Luba Sotelo [id number] Luba Sotelo Notes Date Note Type Note Provider Name and Address Organization Details Recorded Time 01/19/2024 text/html 75-[facility] follow-up of her medical problems ld with anxiety COPD hypothyroidism and hypertension hypertension no headache no dizziness COPD with chronic hypoxic respiratory failure she is maintained on 3 L of oxygen hypothyroidism no heat or cold intolerance anxiety she is maintained on benzodiazepines Keyon Ritter MD Attn: [address] , [place], [address], [facility] 01/19/2024 22:56:14 06/11/2024 text/html COPD no cough [...] Keyon Ritter MD Attn: [address] [facility], [place], [address], [facility] 06/11/2024 22:36:00 06/25/2024 text/html MAW 2Reported bypatient.Diet [...] bathroom/shower Keyon Ritter MD Attn: [address] [place], [address], [facility] 06/30/2024 15:00:45 09/10/2024 text/html Follow up of her medical problems COPD no cough wheezing or shortness of breath at this time. Anxiety doing well on her current medical regimen hypertension blood pressure has been controlled hypothyroid she is always a little bit tired but there has not been any heat or cold intolerance Keyon Ritter MD Attn: [address] [place], [address], [facility] 09/22/2024 21:14:26 01/07/2025 text/html Breathing has be en doing okay uses oxygen at home anxiety has been doing all right toes have been turning purple at times energy level has been fair no heat or cold intolerance in her blood pressure looks good Keyon Ritter MD Attn: [address] [place], [address], [facility] 01/20/2025 17:42:10 OBGyn Episode No OBEpisode recorded.
--- OUTSIDE RECORDS SUMMARY | 2025-02-13 11:07 | XMS_ITS | CONTINUITY OF CARE DOCUMENT ---
Author Name ninapalmaronni Address Unknown Organization [facility] Address [address] [place] [address] Phone [phone] Care Team Providers Care Tool Repairer Bench Name Role Phone Sharon RANKIN, Paxton Unavailable KEYON RUIZ MD Unavailable [phone] KEYON RUIZ MD Unavailable [phone] INSURANCE PROVIDERS Payer name Policy type / Coverage type [place] [employer] party ID [employer] MEDICARE ADVANTAGE HMO-POS HMO [id number]
[2025-02-13 11:54] LABS: Iron 63 ug/dL (37-170)
[2025-02-13 12:06] LABS: Percent Iron Saturation 21 % (20-50)
[2025-02-13 13:00] LABS: Folic Acid 18.8 ng/mL (2.76->20)
== END 2025-02-13 10:59 | disposition home or self-care (01) ==
PROVIDERS: PCP Internal Medicine
DX: D64.9 Anemia, unspecified (principal)
CPT/HCPCS: 36415; 82607; 82728; 82746; 83540; 83550

== ENCOUNTER 2025-03-14 08:18 | Outpatient (CLI) | payer MEDICARE, SELFPAY ==
--- NOTE | ~2025-03-14 | US_ITS ---
ULTRASOUND ANKLE BRACHIAL INDEX Ordering provider: Freddie Ritter, History: . PVD . Comparison: None. FINDINGS: Right brachial systolic blood pressure: 133 mmHg Left brachial systolic blood pressure: 128 mmHg Right ankle systolic blood pressure: 138 mmHg Left ankle systolic blood pressure: 121 mmHg Right ankle/arm index (DANIEL): 1.04. Left ankle/arm index (DANIEL): 0.91. Note regarding DANIEL: --Normal= 1.0 or slightly greater. --Claudication (moderate stenosis or occlusive state)= 0.6 to 0.9. --Rest pain (severe occlusive states)= 0.5 or less. IMPRESSION: Normal right DANIEL. Mild stenosis on the left side. Further evaluation advised. Reviewed, dictated and finalized at location A.
== END 2025-03-14 08:19 | disposition home or self-care (01) ==
PROVIDERS: PCP Internal Medicine; Visit Provider Internal Medicine
DX: I73.9 Peripheral vascular disease, unspecified (principal)
CPT/HCPCS: 93922

== ENCOUNTER 2025-07-31 12:42 | Outpatient (CLI) | payer MEDICARE, SELFPAY ==
[2025-07-31 13:34] LABS: Hematocrit 37.2 % (37.0-47.0); Hemoglobin 11.3 g/dL (12.0-15.0); Immature Granulocyte Percent A 0.8 % (0-0.5); Lymphocytes Absolute Auto 1.20 K/mm3 (0.9-3.2); Mean Corpuscular HGB Conc 30.4 g/dl (32-36); Mean Corpuscular Hemoglobin 28.7 pg (26-34); Mean Corpuscular Volume 94.4 fl (80-100); Nucleated Red Blood Cells Absolute Auto 0.000 K/mm3 (0.0-0.012); Nucleated Red Blood Cells Perc 0.0 % (0.0-0.2); Platelet Count Result 240 k/mm3 (150-375); Red Blood Count 3.94 M/mm3 (4.2-5.4); White Blood Count 7.5 K/mm3 (4.5-10.0)
--- OUTSIDE RECORDS SUMMARY | 2025-07-31 13:47 | XMS_ITS | Clinical Summary ---
Author Organization [facility] Address [address] [place] [address] Care Team Providers Care Clinical Rehab Specialist Name Role Phone Unavailable Primary Care Provider Unavailabl e Source Comments [facility],non-owned Affiliates and Associated Physician Practices is amultiple site organization consisting of ambulatory clinics and hospital sitesin [place], [place], [place] and [place]. This disclosure is being madepursuant to the Care Everywhere program and may not contain all information available regarding this patient. 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 Gender Identity Not on file Sexual Orientation Not on file Last Filed Vital Signs Vital Sign Reading Time Taken Comments Blood Pressure 145/86 11/26/2021 12:04 AM WEB PRESS OPERATOR [employer]PER [employer]SET Pulse 77 11/26/2021 9:01 AM WEB PRESS OPERATOR [employer]PER [employer]SET Temperature 36.3 C (97.3 F) 11/25/2021 5:22 PM WEB PRESS OPERATOR HELPER [employer]SET Respiratory Rate 9 11/26/2021 9:01 AM WEB PRESS OPERATOR HELPER [employer]SET Oxygen Saturation 100% 11/26/2021 9:01 AM WEB PRESS OPERATOR HELPER [employer]SET Inhaled Oxygen Concentration - - Weight 94.3 kg (208 lb) 11/25/2021 5:07 PM WEB PRESS OPERATOR HELPER [employer]SET Height - - Body Mass Index - - Plan of Treatment Health Maintenance Due Date Last Done Comments BONE DENSITY TESTING 1946 DTAP/TDAP/TD VACCINES (1 - Tdap) 1965 PNEUMOCOCCAL VACCINE 50+ (1 of 1 - PCV) 1996 ZOSTER VACCINE (1 of 2) 1996 Respiratory Syncytial Virus (RSV) Vaccine Pt: or over 60 yrs (1 - 1-dose 75+ series) 2021 DEPRESSION SCREENING 09/19/2024 COVID-19 VACCINE (1 - 2023-2 5 season) 2025 INFLUENZA VACCINE (#1) 2025 HEPATITIS B VACCINE Aged Out No [...] patient's age to [place] [address] [facility] [place] [address] [facility] ADV
[2025-07-31 13:52] LABS: Alanine Aminotransferase 10 U/L (6-35); Albumin Level 4.5 g/dL (3.5-5.1); Alkaline Phosphatase 92 U/L (38-126); Anion Gap 7 mmol/L (4-12); Aspartate Amino Transferase 23 U/L (14-36); Bilirubin,Total 0.6 mg/dL (0.2-1.3); Blood Urea Nitrogen 23 mg/dL (7-17); Calcium 9.7 mg/dL (8.4-10.2); Carbon Dioxide 30 mmol/L (22-30); Chloride 96 mmol/L (98-107); Cholesterol 175 mg/dL (0-200); Estimated Glomerular Filt Rate 32; Glucose 91 mg/dL (65-110); HDL Direct 73 mg/dL; Potassium 5.2 mmol/L (3.4-5.0); Sodium 133 mmol/L (137-145); Total Protein 7.6 g/dL (6.3-8.2); Triglycerides 95 mg/dL (<150)
[2025-07-31 14:15] LABS: Free T3 3.02 pg/mL (2.45-5.93); Free T4 Free Thyroxine 1.84 ng/dL (0.78-2.19)
[2025-07-31 14:28] LABS: Thyroid Stimulating Hormone 0.110 uIU/mL (0.465-4.680)
== END 2025-07-31 12:43 | disposition home or self-care (01) ==
PROVIDERS: PCP Internal Medicine; Visit Provider Internal Medicine
DX: Z51.81 Encounter for therapeutic drug level monitoring (principal); I10 Essential (primary) hypertension
CPT/HCPCS: 36415; 80053; 80061; 84439; 84443; 84481; 85025